=== PATIENT | male | born 1935 | race Caucasian/White ===

== ENCOUNTER → 2019-08-11 10:09 | Outpatient (BNVA) | payer MEDICARE, BC, SELFPAY | PROVIDERS: Family Provider Family Medicine; PCP Family Medicine; Visit Provider Family Medicine | DX: B35.3 Tinea pedis (principal); E78.5 Hyperlipidemia, unspecified; N40.0 Benign prostatic hyperplasia without lower urinary tract symptoms; I10 Essential (primary) hypertension; R97.20 Elevated prostate specific antigen [PSA] | CPT/HCPCS: 80053; 80061; 85025; G0103 ==

== ENCOUNTER → 2019-12-03 10:07 | Outpatient (BNVA) | payer MEDICARE, BC, SELFPAY | PROVIDERS: Family Provider Family Medicine; PCP Family Medicine; Visit Provider Family Medicine | DX: R97.20 Elevated prostate specific antigen [PSA] (principal); E78.5 Hyperlipidemia, unspecified | CPT/HCPCS: 80053; 80061; 84153; 85025 ==

== ENCOUNTER → 2020-04-08 08:13 | Outpatient (BNVA) | payer MEDICARE, BC, SELFPAY | PROVIDERS: Family Provider Family Medicine; PCP Family Medicine; Visit Provider Family Medicine | DX: I10 Essential (primary) hypertension (principal); E78.5 Hyperlipidemia, unspecified | CPT/HCPCS: 80053; 80061; 85025 ==

== ENCOUNTER → 2020-09-07 10:08 | Outpatient (BNVA) | payer MEDICARE, BC, SELFPAY | PROVIDERS: Family Provider Family Medicine; PCP Family Medicine; Visit Provider Family Medicine | DX: E78.5 Hyperlipidemia, unspecified (principal); M19.90 Unspecified osteoarthritis, unspecified site; N40.1 Benign prostatic hyperplasia with lower urinary tract symptoms; R39.11 Hesitancy of micturition; I50.9 Heart failure, unspecified; B35.3 Tinea pedis; I11.0 Hypertensive heart disease with heart failure | CPT/HCPCS: 80053; 80061; 84443; 85025; G0103 ==

== ENCOUNTER → 2021-02-01 12:01 | Outpatient (BNVA) | payer MEDICARE, BC, SELFPAY | PROVIDERS: Family Provider Family Medicine; PCP Family Medicine; Visit Provider Family Medicine | DX: E78.5 Hyperlipidemia, unspecified (principal); D64.9 Anemia, unspecified; I11.0 Hypertensive heart disease with heart failure; I50.9 Heart failure, unspecified; B35.3 Tinea pedis; N40.1 Benign prostatic hyperplasia with lower urinary tract symptoms; R39.11 Hesitancy of micturition; M17.10 Unilateral primary osteoarthritis, unspecified knee | CPT/HCPCS: 80053; 80061; 84443; 85025 ==

== ENCOUNTER → 2021-06-13 11:49 | Outpatient (BNVA) | payer MEDICARE, BC, SELFPAY | PROVIDERS: Family Provider Family Medicine; PCP Family Medicine; Visit Provider Nurse Practitioner Family | DX: J06.9 Acute upper respiratory infection, unspecified (principal); R05.9 Cough, unspecified; I10 Essential (primary) hypertension; I50.9 Heart failure, unspecified; R60.9 Edema, unspecified | CPT/HCPCS: 80053; 83880 ==

== ENCOUNTER → 2021-06-14 11:03 | Outpatient (BNVA) | payer MEDICARE, BC, SELFPAY | PROVIDERS: Family Provider Family Medicine; PCP Family Medicine; Visit Provider Nurse Practitioner Family | DX: J06.9 Acute upper respiratory infection, unspecified (principal); R05.9 Cough, unspecified | CPT/HCPCS: 71046 ==

== ENCOUNTER 2021-06-26 12:55 | Emergency (ER) | payer MEDICARE, BC, SELFPAY ==
[2021-06-26 13:03] VITALS: BP 196/82; PULSE 66; RESP 18; TEMP 37.2; O2SAT 95
--- NOTE | 2021-06-26 13:13 | W.ED.AMS ---
HPI - Altered Mental Status General: Chief Complaint: Altered Mental Status Stated Complaint: AMS Time Seen by Provider: 06/26/21 13:13 Limitations: altered mental status and other History of Present Illness: Mr. Ceja is an 85-year-old gentleman with history, per chart review, of hypertension, hyperlipidemia, CHF, absence of eye who presents to the emergency department for strokelike symptoms. History is severely limited by patient's clinical presentation and history is provided by family at bedside. Apparently he walked down to a barn yesterday afternoon perhaps around 330 and when he returned he had dysarthric speech. He did not indicate fall or any obvious cause. Symptoms have persisted. He tried to converse via writing this morning however was only able to write numbers and the word sick. Upon my examination the patient has severe receptive aphasia which limits history. No other recent changes in health reported by family. 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 Encounter for counseling for care management of patient with chronic conditions and complex health needs using nurse-based model Essential hypertension Gastric ulcer multiple Hiatal hernia Lower esophageal ring (Schatzki) Surgical History History of arthroscopy of shoulder (~2005) History of esophagogastroduodenoscopy (EGD) (~12/2015) Schatzki ring noted, bx taken with cold forceps. Small hiatal hernia, multiple 5mm gastric ulcers noted in the antrum of stomach. BX with cold forceps. No abnormalities in the duodenum. History of removal of eye (~1965) right Hx laparoscopic cholecystectomy (~05/2017) Hx of appendectomy (~1967) Hx of colonoscopy (~12/2015) no abnormalities, except internal hemorrhoids. No obvious source of bleeding. Hx of transurethral resection of prostate Family History Father Cancer hepatic Social History Smoking and tobacco status: never smoked Second hand smoke exposure: No Alcohol intake: never Caregiver/support person: Yes Lives independently: Yes Household members: spouse Housing: House Marital status: Current occupational status: retired History of recent travel: No Current gender identity: Male Wandy/Yarsanism: D4P Physical Exam Const: COMMON NORMALS: alert GENERAL APPEARANCE: well developed and ill appearing HENMT: COMMON NORMALS: normocephalic and atraumatic HEAD & SCALP: normocephalic and atraumatic Eye: COMMON NORMALS: conjunctivae normal CONJUNCTIVA: Yes conjunctivae normal SCLERA: sclerae normal OTHER: right eye prosthesis Neck/C-Spine: COMMON NORMALS: supple GENERAL: Yes trachea midline Resp: COMMON NORMALS: clear to auscultation bilaterally EFFORT & INSPECTION: Yes able to speak in complete sentences AUSCULTATION: clear to auscultation bilaterally OTHER: Patient at times blowing breath out through pursed lips for uncertain reason, other times appears normal Cardio: COMMON NORMALS: regular rate and regular rhythm RATE: regular rate RHYTHM: regular rhythm GI: COMMON NORMALS: Soft to palpation PALPATION: Yes Soft to palpation and No Tenderness to palpation present (GI) PERCUSSION: normal to percussion Extremity: GENERAL: Yes normal exam except as noted and No edema Neuro: COMMON NORMALS: moves all extremities SENSORIUM/ORIENTATION: Yes alert OTHER: Dense receptive aphasia which severely limits exam. Patient appears to look around in regard appropriately however does not understand or follow commands. Speech severely dysarthric. NIHSS at least 10 if no points added for non testable items. Course ED course: - Patient was seen and evaluated by me at bedside - Patient placed on cardiac monitors, IV access obtained - Initial evaluation notable for NIHSS 10 at best. No evidence of trauma.. Patient outside of TPA window. - Labs and xrays personally interpreted by me. EKG performed at 1327 and personally interpreted by me. Sinus rhythm. No STEMI. - Labs notable for normal glucose. No acute hematologic or metabolic abnormality to explain the patient's symptoms. - Imaging notable for no lobar consolidation or pneumothorax. I ordered CT head shortly after seeing patient approximately 15-20 minutes after patient was registered/presented to ED. Apparently nursing staffing coordinator witnessed bedbugs on patient and there was a delay in obtaining this imaging as radiology staff would not take patient to CT right away. I emphasized to charge nurse that imaging takes priority however a delay still occurred. CT imaging notable for bleed. In discussion with radiology perhaps a bleeding metastatic lesion, though no known cancer history, as location is not typical for hypertensive bleed or traumatic bleed. - Given hypertension nicardipine ordered. With systolic goal less than 140. I directed nursing staffing coordinator for head of bed elevated to approximately 40 degrees. Case discussed with neurosurgery at [facility] in [facility] Dr. Pool who will evaluate the patient as ED to ED transfer. Patient accepted by Dr. Schafer in the emergency department. - Upon serial reexamination after treatment the patient was similar - Based on patient history, evaluation, and testing as interpreted the most likely cause of the patient's condition is hemorrhagic stroke - The results of ED evaluation were discussed with the patient's family including plan for transfer due to requirement for level of care not available if discharged to prevent significant worsening/deterioration. - Patient transferred from the emergency department by air EMS crew without worsening or acute clinical change. Note: Click bubbles or prepopulated bernabe in note writing are used for assistance with data collection and billing and are inherently more limited than narrative and other text portions of this note. Please use narrative for additional clinical history and defer to narrative/free test for any case of contradictory information. If information appears in only free text or click bubble it should be considered present or absent as reported. Please contact note proposal manager writer for clarifications of clinical information or contradictory information. MDM is a brief summary, contradictory or erroneous seeming information should be clarified and full note should be reviewed. Vital Signs: Vital signs: Vital Signs Temperature 98.9 F 06/26/21 13:03 Pulse Rate 65 06/26/21 15:54 Respiratory Rate 18 06/26/21 15:54 Blood Pressure 146/81 06/26/21 15:54 Pulse Oximetry 96 06/26/21 15:54 MDM - Altered Mental Status Medical Decision Making 85-year-old gentleman not on anticoagulation presenting with unwitnessed onset of abnormal neurologic symptoms. Last known normal 06/25 at approximately 3:30 PM. Subsequently seen by family with inability to speak/dysarthric speech. No history of similar. Patient found to have large intraparenchymal hemorrhage in the left parietal region and NIHSS of at least 10 with dense receptive aphasia severely limiting neurologic exam. Transferred emergently for neurosurgical evaluation. Medical Records I reviewed the patient's medical records. Lab Data I reviewed the patient's lab results. : 06/26/21 13:34 06/26/21 13:34 Radiology Impressions Chest X-Ray 06/26/21 13:14 IMPRESSION: Mild bibasilar atelectasis. Pneumonitis is not excluded. Head CT 06/26/21 13:14 IMPRESSION: Acute parenchymal hematoma centered in the left posterior temporal lobe, measuring 2.9 x 4.3 x 2.0 cm, with surrounding halo of edema. Subarachnoid hemorrhage noted in several adjacent sulci. ADDENDUM: 06/26/21 1549 The ordering physician Kumar Storm was contacted by phone at 3:42 PM CDT, 06/26/2021 with these results. Laboratory Results WBC 8.5 10^3/uL (4.0-10.0) 06/26/21 13:34 RBC 4.28 10^6/uL (4.1-5.3) 06/26/21 13:34 Hgb 13.5 g/dL (11.7-16.6) 06/26/21 13:34 Hct 39.6 % (42.0-52.0) L 06/26/21 13:34 MCV 92.5 fl (80-94) 06/26/21 13:34 MCH 31.5 pg (28.0-34.0) 06/26/21 13:34 MCHC 34.1 g/dL (30.0-36.0) 06/26/21 13:34 RDW 12.4 % (12.1-15.1) 06/26/21 13:34 Plt Count 199 10^3/cmm (130-400) 06/26/21 13:34 MPV 10.7 fL (7.4-10.4) H 06/26/21 13:34 Neut % (Auto) 70.9 % 06/26/21 13:34 Lymph % (Auto) 20.7 % 06/26/21 13:34 [place] % (Auto) 6.0 % 06/26/21 13:34 Eos % (Auto) 1.3 % 06/26/21 13:34 Baso % (Auto) 0.7 % 06/26/21 13:34 Neut # (Auto) 6.02 10^3/uL (1.8-7.7) 06/26/21 13:34 Lymph # (Auto) 1.8 10^3/uL (0.8-4.8) 06/26/21 13:34 [place] # (Auto) 0.5 10^3/uL (0.2-0.9) 06/26/21 13:34 Eos # (Auto) 0.1 10^3/uL (0.0-0.8) 06/26/21 13:34 Baso # (Auto) 0.1 10^3/uL (0.0-0.1) 06/26/21 13:34 Nucleated RBC % (auto) 0 % 06/26/21 13:34 Nucleated RBCs # 0.0 /100WBC 06/26/21 13:34 PT 12.70 SECONDS (12.1-14.9) 06/26/21 13:34 INR 0.93 (0.8-1.2) 06/26/21 13:34 APTT 25.6 SECONDS (23.9-36.7) 06/26/21 13:34 Sodium 133 mmol/L (136-145) L 06/26/21 13:34 Potassium 4.5 mmol/L (3.5-5.1) 06/26/21 13:34 Chloride 101 mmol/L (98-107) 06/26/21 13:34 Carbon Dioxide 22 mmol/L (22-29) 06/26/21 13:34 Anion Gap 14.5 (5-19) 06/26/21 13:34 BUN 17 mg/dL (8-23) 06/26/21 13:34 Creatinine 1.1 mg/dL (0.7-1.2) 06/26/21 13:34 GFR Calculation Not Reportable 06/26/21 13:34 Glucose 124 mg/dL (65-115) H 06/26/21 13:34 POC Glucose 112 mg/dL (70-110) H 06/26/21 13:31 Calculated Osmolality 279 mOsm/kg (285-295) L 06/26/21 13:34 Calcium 9.6 mg/dL (8.5-10.5) 06/26/21 13:34 Total Bilirubin 0.5 mg/dL (0.15-1.2) 06/26/21 13:34 AST 26 U/L (0-40) 06/26/21 13:34 ALT 17 U/L (0-41) 06/26/21 13:34 Alkaline Phosphatase 66 IU/L (40-130) 06/26/21 13:34 Troponin T Baseline 36 ng/L (0-15) H 06/26/21 13:34 Troponin T 120 Minute 32.14 ng/L (0-15) H 06/26/21 15:04 Delta Troponin T -3.86 ABS# (0-10) L 06/26/21 15:04 Total Protein 7.2 g/dL (6.6-8.7) 06/26/21 13:34 Albumin 3.6 g/dL (3.5-5.2) 06/26/21 13:34 Globulin 3.6 g/dL (1.3-4.6) 06/26/21 13:34 TSH 1.41 uIU/mL (0.27-4.20) 06/26/21 13:34 Critical Care Time Critical Care Time: Critical Care Time: Yes Total Critical Care Time: 80 Attestation: Due to a high probability of clinically significant, possibly life threatening deterioration, the patient required my highest level of attention and preparedness to intervene emergently and I personally spent this critical care time directly and personally managing the patient. This critical care time included obtaining a history; examining the patient; pulse oximetry; ordering and review of laboratory and imaging studies; arranging urgent treatment with development of a management plan; evaluation of patient's response to treatment; frequent reassessment; and, discussions with other providers as applicable. It was exclusive of separately billable procedures. Primary system involved cerebrovascular Discharge Plan Discharge Patient Disposition: Transfer to ED Clinical Impression: Hemorrhagic stroke Condition: Stable Prescriptions: No Action multivitamin [Daily Multi-Vitamin] Tablet 1 tab PO QAM 0RF aspirin 81 mg tablet,delayed release (DR/EC) 81 mg PO DAILY 0RF triamcinolone acetonide 0.1 % cream 1 applic TOPICAL BID Qty: 80 2RF ketoconazole 2 % cream 1 applic TOPICAL BID Qty: 60 2RF diclofenac sodium 1 % gel See Rx Instructions .ROUTE .COMPLEX Qty: 100 0RF Dose Instruction: APPLY 2 GRAMS (3/4 INCH) TOPICALLY 4 TIMES DAILY Rx Instructions: APPLY 2 GRAMS (3/4 INCH) TOPICALLY 4 TIMES DAILY celecoxib 200 mg capsule 200 mg PO BID 0RF bisoprolol-hydrochlorothiazide 10-6.25 mg tablet 1 tab PO DAILY 0RF simvastatin 10 mg tablet 10 mg PO DAILY 0RF tamsulosin 0.4 mg capsule 0.4 mg PO DAILY 0RF losartan 100 mg tablet 100 mg PO DAILY 0RF Referrals: Mike Martinez MD [Referring] - Sunshine Garcia MD [Primary Care Provider] - Coding Level of Care Code ED Insole Toe Snipping Machine Operator for Chg Fwd Exam Comprehensive
--- NOTE | 2021-06-26 13:14 | CTR_ITS ---
PROCEDURE INFORMATION: Exam: CT Head Without Contrast Exam date and time: 06/26/2021 3:19 PM Age: 85 years old Clinical indication: Altered mental status/memory loss and speech disturbance; Other: Not talking; Additional info: Stroke like symptoms TECHNIQUE: Imaging protocol: Computed tomography of the head without contrast. Radiation optimization: All CT scans at this facility use at least one of these dose optimization techniques: automated exposure control; mA and/or kV adjustment per patient size (includes targeted exams where dose is matched to clinical indication); or iterative reconstruction. COMPARISON: No relevant prior studies available. RADIATION DOSE METRICS: Total DLP (mGy-cm): 928.68 FINDINGS: Brain: There is an acute parenchymal hematoma centered in the left posterior temporal lobe, measuring 2.9 x 4.3 x 2.0 cm, with surrounding halo of edema. There is subarachnoid hemorrhage noted in several adjacent sulci. No midline shift. There are global involutional changes of the brain which are in keeping with the patient's age. No midline shift. Cerebral ventricles: No hydrocephalus. Paranasal sinuses: The visualized sinuses are unremarkable. Mastoid air cells: There is no mastoid effusion detected. Orbital cavities: Prosthetic right optic globe. Degenerative ocular calcifications are seen on the left. Vasculature: Atherosclerotic vascular disease is noted at the level of the skull base. Bones/joints: Unremarkable. No acute fracture. Soft tissues: Unremarkable. CT/CT head wo con* [id number] IMPRESSION: Acute parenchymal hematoma centered in the left posterior temporal lobe, measuring 2.9 x 4.3 x 2.0 cm, with surrounding halo of edema. Subarachnoid hemorrhage noted in several adjacent sulci.
--- NOTE | 2021-06-26 13:14 | ECG_ITS ---
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 Measurements Intervals [place] Rate: 65 P: 58 DE: 188 QRS: 44 QRSD: 79 T: 79 QT: 388 QTc: 404 Interpretive Statements SINUS RHYTHM MODERATE ST DEPRESSION [0.05+ mV ST DEPRESSION] Compared to ECG 06/05/2017 10:08:08 No significant changes Electronically Signed On 06-27-2021 15:28:07 CDT by Ahmet Hamilton M.D. [email or web address] ([id number]
--- NOTE | 2021-06-26 13:14 | XRR_ITS ---
PROCEDURE INFORMATION: Exam: XR Chest Exam date and time: 06/26/2021 3:21 PM Age: 85 years old Clinical indication: Other: AMS; Additional info: Stroke like symptoms TECHNIQUE: Imaging protocol: XR of the chest. Views: 1 view. COMPARISON: CR XR chest 2V* [id number] 06/14/2021 11:18 AM FINDINGS: Lungs: There is mild bibasilar atelectasis. Pneumonitis is not excluded. Pleural spaces: No definite pleural effusion is seen. No pneumothorax identified. Heart/Mediastinum: Unremarkable. No cardiomegaly. Bones/joints: Unremarkable. XR/XR chest 1V portable [id number] IMPRESSION: Mild bibasilar atelectasis. Pneumonitis is not excluded.
[2021-06-26 13:33] VITALS: BP 172/95; PULSE 66; RESP 16; O2SAT 97
[2021-06-26 13:40] LABS: Glucose Point of Care 112 mg/dL (70-110)
[2021-06-26 13:46] LABS: Basophils # 0.1 10^3/uL (0.0-0.1); Basophils % 0.7 %; Eosinophils # 0.1 10^3/uL (0.0-0.8); Eosinophils % 1.3 %; Hematocrit 39.6 % (42.0-52.0); Hemoglobin 13.5 g/dL (11.7-16.6); Lymphocytes # 1.8 10^3/uL (0.8-4.8); Lymphocytes % 20.7 %; Mean Corpuscular HGB Conc 34.1 g/dL (30.0-36.0); Mean Corpuscular Hemoglobin 31.5 pg (28.0-34.0); Mean Corpuscular Volume 92.5 fl (80-94); Mean Platelet Volume 10.7 fL (7.4-10.4); Monocytes # 0.5 10^3/uL (0.2-0.9); Neutrophils # 6.02 10^3/uL (1.8-7.7); Neutrophils % 70.9 %; Nucleated Red Blood Cells % 0 %; Platelet Count 199 10^3/cmm (130-400); Red Blood Count 4.28 10^6/uL (4.1-5.3); Red Cell Distribution Width 12.4 % (12.1-15.1); White Blood Count 8.5 10^3/uL (4.0-10.0)
--- NOTE | 2021-06-26 14:10 | PC.NURSE ---
Two live bed bugs were found on patient during initial assessment. Daughter at bedside stating her parent have been dealing with bed bugs, have had a home treatment but it has been unsuccessful. Daughter concerned if his s/s are caused from the bugs. The two bugs were captured into a sterile cup. Charge Nurse notified. Dr. Mojica notified. Pt's belongings were placed in a trash bag and double bagged, pt changed into paper scrubs, non slip socks, and a surgical cap. Pt's bedding was also changed and placed in the appropriate bagging. Family informed of policy and educated on staying in the room during this ER visit. Towels placed outside the door of room 2 along the door frame.
[2021-06-26 14:15] LABS: Troponin(5th) Baseline 36 ng/L (0-15)
[2021-06-26 14:20] VITALS: BP 176/71; PULSE 88; RESP 16; O2SAT 95
[2021-06-26 14:24] LABS: Alanine Aminotransferase 17 U/L (0-41); Albumin Level 3.6 g/dL (3.5-5.2); Alkaline Phosphatase 66 IU/L (40-130); Anion Gap 14.5 (5-19); Aspartate Amino Transferase 26 U/L (0-40); Blood Urea Nitrogen 17 mg/dL (8-23); Calcium 9.6 mg/dL (8.5-10.5); Carbon Dioxide 22 mmol/L (22-29); Chloride 101 mmol/L (98-107); Globulin 3.6 g/dL (1.3-4.6); Glucose 124 mg/dL (65-115); Osmolality Calculated 279 mOsm/kg (285-295); Potassium 4.5 mmol/L (3.5-5.1); Sodium 133 mmol/L (136-145); Thyroid Stimulating Hormone 1.41 uIU/mL (0.27-4.20); Total Bilirubin 0.5 mg/dL (0.15-1.2); Total Protein 7.2 g/dL (6.6-8.7)
[2021-06-26 15:37] LABS: Troponin 5 2HR 32.14 ng/L (0-15)
[2021-06-26 15:38] VITALS: BP 185/83; PULSE 61; RESP 16; O2SAT 97
[2021-06-26] MEDS: nicardipine 20 MG/200 ML PREMIX 50 MG IV (15:38)
[2021-06-26 15:54] VITALS: BP 146/81; PULSE 65; RESP 18; O2SAT 96
[2021-06-26 15:59] LABS: INR 0.93 (0.8-1.2); Partial Thromboplastin Time 25.6 SECONDS (23.9-36.7)
[2021-06-26 16:04] LABS: Troponin 5 2HR Delta -3.86 ABS# (0-10)
== END 2021-06-26 16:30 ==
PROVIDERS: Emergency Provider Emergency Medicine; PCP Family Medicine
DX: I61.9 Nontraumatic intracerebral hemorrhage, unspecified (principal); R47.01 Aphasia; R29.710 NIHSS score 10; I11.0 Hypertensive heart disease with heart failure; I50.9 Heart failure, unspecified; E78.5 Hyperlipidemia, unspecified; Z90.01 Acquired absence of eye; Z79.82 Long term (current) use of aspirin
CPT/HCPCS: 36416; 70450; 71045; 80053; 82962; 84443; 84484; 85025; 85610; 85730; 93005; 96374; 99285

== ENCOUNTER 2021-11-12 11:44 | Emergency (ER) | payer MEDICARE, BC, SELFPAY ==
[2021-11-12 11:49] VITALS: BP 131/61; PULSE 70; RESP 16; TEMP 36.3; O2SAT 95; BMI 26.5
--- NOTE | 2021-11-12 11:50 | ED_ITS ---
HPI - Altered Mental Status General: Chief Complaint: Altered Mental Status Stated Complaint: AMS Time Seen by Provider: 11/12/21 11:50 Limitations: altered mental status History of Present Illness: 86-year-old gentleman with history, per chart review of CHF, hypertension, hyperlipidemia, COVID presenting to the ER for mental status change. 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 Apparently correction staff called 911 because he destroyed his room however upon EMS arrival room appears in well order without evidence of significant abnormality. History is significant limited by patient's baseline mental status. Apparently COVID's been going on for 3 days. Otherwise no significant meaningful history obtained from patient. Review of Systems General: Reports: ROS unobtainable due to mental status PFSH ED PFSH: Medical History Absent eyeball right Anemia Benign prostatic hyperplasia CHF (congestive heart failure) 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 Encounter for counseling for care management of patient with chronic conditions and complex health needs using nurse-based model Essential hypertension Gastric ulcer multiple Hiatal hernia Lower esophageal ring (Schatzki) Surgical History History of arthroscopy of shoulder (~2005) History of esophagogastroduodenoscopy (EGD) (~12/2015) Schatzki ring noted, bx taken with cold forceps. Small hiatal hernia, multiple 5mm gastric ulcers noted in the antrum of stomach. BX with cold forceps. No abnormalities in the duodenum. History of removal of eye (~1965) right Hx laparoscopic cholecystectomy (~05/2017) Hx of appendectomy (~1967) Hx of colonoscopy (~12/2015) no abnormalities, except internal hemorrhoids. No obvious source of bleeding. Hx of transurethral resection of prostate Family History Father Cancer hepatic Social History Smoking and tobacco status: never smoked Second hand smoke exposure: No Alcohol intake: never Caregiver/support person: Yes Lives independently: Yes Household members: spouse Housing: House Marital status: Current occupational status: retired History of recent travel: No Current gender identity: Male Wandy/[employer]ond[employer]ational: [employer] Physical Exam Const: COMMON NORMALS: alert GENERAL APPEARANCE: cooperative and well developed HENMT: COMMON NORMALS: normocephalic and atraumatic HEAD & SCALP: normocep halic and atraumatic Eye: COMMON NORMALS: conjunctivae normal CONJUNCTIVA: Yes conjunctivae normal SCLERA: sclerae normal Neck/C-Spine: COMMON NORMALS: supple GENERAL: Yes trachea midline Resp: COMMON NORMALS: normal respiratory effort and clear to auscultation bilaterally EFFORT & INSPECTION: Yes able to speak in complete sentences AUSCULTATION: clear to auscultation bilaterally Cardio: COMMON NORMALS: regular rate and regular rhythm RATE: regular rate RHYTHM: regular rhythm GI: COMMON NORMALS: Soft to palpation PALPATION: Yes Soft to palpation and No Tenderness to palpation present (GI) Extremity: GENERAL: Yes normal exam except as noted and No edema Neuro: COMMON NORMALS: moves all extremities SENSORIUM/ORIENTATION: Yes alert and Yes Orientation impaired OTHER: Somewhat difficult to understand speech Course ED course: - Patient was seen and evaluated by me at bedside - Patient placed on cardiac monitors, IV access obtained - Initial evaluation notable for exam as above. Nonfocal neuro exam. - Labs and xrays personally interpreted by me. EKG notable for sinus rhythm, nonspecific ST segment abnormalities. No STEMI. - Labs notable for mild leukopenia, normal hemoglobin. Metabolic panel without acute abnormality to explain symptoms. No evidence of UTI. - Imaging notable for no lobar consolidation or pneumothorax per radiology read atypical appearance of right hilum concerning for thoracic aortic pathology. CT head negative for acute intracranial hemorrhage or mass. CTA chest negative for acute allergy. - Upon serial reexamination after treatment the patient was similar - Based on patient history, evaluation, and testing as interpreted the most likely cause of the patient's condition is altered mental status which is likely baseline for patient. -Discharge instructions printed. Satisfactory for transfer back to correction. Note: Click bubbles or prepopulated bernabe in note writing are used for assistance with data collection and billing and are inherently more limited than narrative and other text portions of this note. Please use narrative for additional clinical history and defer to narrative/free test for any case of contradictory information. If information appears in only free text or click bubble it should be considered present or absent as reported. Please contact note junior copywriter for clarifications of clinical information or contradictory information. MDM is a brief summary, contradictory or erroneous seeming information should be clarified and full note should be reviewed. Vital Signs: Vital signs: Vital Signs Temperature 97.3 F L 11/12/21 11:49 Pulse Rate 99 11/12/21 18:19 Respiratory Rate 21 H 11/12/21 18:19 Blood Pressure 98/68 11/12/21 18:19 Pulse Oximetry 94 11/12/21 18:19 Oxygen Delivery Me thod 11/12/21 13:24 MDM - Altered Mental Status Medical Decision Making 86-year-old gentleman with history of dementia presenting for possible destructive behavior though this is questionable, patient cooperative, limited history secondary to likely baseline. ED evaluation negative for acute pathology. Satisfactory for continued outpatient management at correction. Medical Records I reviewed the patient's medical records. Lab Data I reviewed the patient's lab results. : 11/12/21 12:01 11/12/21 12:01 Radiology Impressions Chest X-Ray 11/12/21 12:14 IMPRESSION: Smooth bulging of the right hilum that could reflect an ascending thoracic aortic aneurysm. Consider CTA of the chest if clinically warranted. Head CT 11/12/21 12:14 IMPRESSION: 1. Kwmx-sg-fkxdxefj senescent changes as above. 2. 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 3. No acute intracranial abnormality is identified. Chest CTA 11/12/21 13:18 IMPRESSION: No acute findings. Laboratory Results WBC 2.9 10^3/uL (4.0-10.0) L 11/12/21 12:01 RBC 4.22 10^6/uL (4.1-5.3) 11/12/21 12:01 Hgb 11.8 g/dL (11.7-16.6) 11/12/21 12:01 Hct 38.4 % (42.0-52.0) L 11/12/21 12:01 MCV 91.0 fl (80-94) 11/12/21 12:01 MCH 28.0 pg (28.0-34.0) 11/12/21 12:01 MCHC 30.7 g/dL (30.0-36.0) 11/12/21 12:01 RDW 15.7 % (12.1-15.1) H 11/12/21 12:01 Plt Count 145 10^3/cmm (130-400) 11/12/21 12:01 MPV 10.9 fL (7.4-10.4) H 11/12/21 12:01 Neut % (Auto) 42.1 % 11/12/21 12:01 Lymph % (Auto) 45.8 % 11/12/21 12:01 [place] % (Auto) 9.7 % 11/12/21 12:01 Eos % (Auto) 1.7 % 11/12/21 12:01 Baso % (Auto) 0.0 % 11/12/21 12:01 Neut # (Auto) 1.21 10^3/uL (1.8-7.7) L 11/12/21 12:01 Lymph # (Auto) 1.3 10^3/uL (0.8-4.8) 11/12/21 12:01 [place] # (Auto) 0.3 10^3/uL (0.2-0.9) 11/12/21 12:01 Eos # (Auto) 0.1 10^3/uL (0.0-0.8) 11/12/21 12:01 Baso # (Auto) 0.0 10^3/uL (0.0-0.1) 11/12/21 12:01 Nucleated RBC % (auto) 0 % 11/12/21 12:01 Nucleated RBCs # 0.0 /100WBC 11/12/21 12:01 Sodium 138 mmol/L (136-145) 11/12/21 12:01 Potassium 4.6 mmol/L (3.5-5.1) 11/12/21 12:01 Chloride 102 mmol/L (98-107) 11/12/21 12:01 Carbon Dioxide 25 mmol/L (22-29) 11/12/21 12:01 Anion Gap 15.6 (5-19) 11/12/21 12:01 BUN 19 mg/dL (8-23) 11/12/21 12:01 Creatinine 1.1 mg/dL (0.7-1.2) 11/12/21 12:01 GFR Calculation Not Reportable 11/12/21 12:01 Glucose 110 mg/dL (65-115) 11/12/21 12:01 Calculated Osmolality 289 mOsm/kg (285-295) 11/12/21 12:01 Calcium 8.3 mg/dL (8.5-10.5) L 11/12/21 12:01 Total Bilirubin 0.4 mg/dL (0.15-1.2) 11/12/21 12:01 AST 24 U/L (0-40) 11/12/21 12:01 ALT 14 U/L (0-41) 11/12/21 12:01 Alkaline Phosphatase 77 U/L (40-130) 11/12/21 12:01 Total Protein 6.7 g/dL (6.6-8.7) 11/12/21 12:01 Albumin 3.2 g/dL (3.5-5.2) L 11/12/21 12:01 Globulin 3.5 g/dL (1.3-4.6) 11/12/21 12:01 Procalcitonin 0.12 ng/mL (0-0.5) 11/12/21 12:01 TSH 3.15 uIU/mL (0.27-4.20) 11/12/21 12:01 Urine Color Yellow (Yellow) 11/12/21 14:40 Urine Appearance Sl hazy (CLEAR) 11/12/21 14:40 Urine pH 5 (5-7) 11/12/21 14:40 Ur Specific [place] 1.015 (1.005-1.030) 11/12/21 14:40 Urine Protein Neg (Negative) 11/12/21 14:40 Urine Glucose (UA) Norm (Normal) 11/12/21 14:40 Urine Ketones Negative (Negative) 11/12/21 14:40 Urine Blood Neg (Negative) 11/12/21 14:40 Urine Nitrate Negative (Negative) 11/12/21 14:40 Urine Bilirubin Neg (Negative) 11/12/21 14:40 Urine Urobilinogen 1 mg/dL (Negative) H 11/12/21 14:40 Ur Leukocyte Esterase Negative (Negative) 11/12/21 14:40 Urine RBC None /hpf (0-2) 11/12/21 14:40 Urine WBC Rare /hpf (0-5) 11/12/21 14:40 Ur Squamous Epith Cells Rare /hpf (0-5) 11/12/21 14:40 Amorphous Sediment Not Reportable 11/12/21 14:40 Urine Bacteria Trace /hpf (NONE) 11/12/21 14:40 Hyaline Casts 10-15 /lpf H 11/12/21 14:40 Urine Mucus 1+ /hpf 11/12/21 14:40 Discharge Plan Discharge Patient Disposition: er [facility] Clinical Impression: Dementia, COVID-19, Leukopenia Condition: Stable Discharge Orders: Discharge ED (Routine); Ordered 11/12/21 Ordered By: Kumar Mojica Referrals: Sunshine Garcia MD [Primary Care Provider] - Discharge Diet: Usual diet Discharge Activity: Increase activity as tolerated Patient Instructions: Dementia (ED), COVID-19 (Coronavirus Disease 2019) (ED) Activity Restrictions/Additional Instructions: Thank you for visiting the emergency department. You were seen and evaluated for behavioral changes/outburst. The exact cause of your symptoms is unclear though likely related to underlying dementia. Please continue current medication regimen and follow-up with primary care provider. Return to the emergency department for anything that you are concerned about a feel needs emergency department evaluation. Coding Level of Care Code ED Technical Support Intern for Jorgeg Fwd Exam Comprehensive
--- NOTE | 2021-11-12 11:56 | ECG_ITS ---
[facility] Test Date: 2021-11-12 Pat Name: Juan Ceja Department: Room: Gender: Male Miter Sawyer: : 1935 Requested By: Kumar Mojica Order Number: [id number] Tanner MD: Olive Wood M.D. Measurements Intervals [place] Rate: 70 P: 80 WI: 198 QRS: 36 QRSD: 87 T: 53 QT: 400 QTc: 432 Interpretive Statements SINUS RHYTHM NONSPECIFIC T-WAVE ABNORMALITY Compared to ECG 06/26/2021 13:27:39 T-wave abnormality now present ST (T wave) deviation no longer present Electronically Signed On 11-14-2021 8:12:21 CDT by Olive Wood M.D. [email or web address]/[id number] f
[2021-11-12 12:14] LABS: Eosinophils # 0.1 10^3/uL (0.0-0.8); Eosinophils % 1.7 %; Hematocrit 38.4 % (42.0-52.0); Hemoglobin 11.8 g/dL (11.7-16.6); Lymphocytes # 1.3 10^3/uL (0.8-4.8); Lymphocytes % 45.8 %; Mean Corpuscular HGB Conc 30.7 g/dL (30.0-36.0); Mean Platelet Volume 10.9 fL (7.4-10.4); Monocytes # 0.3 10^3/uL (0.2-0.9); Monocytes % 9.7 %; Neutrophils # 1.21 10^3/uL (1.8-7.7); Neutrophils % 42.1 %; Nucleated Red Blood Cells % 0 %; Platelet Count 145 10^3/cmm (130-400); Red Blood Count 4.22 10^6/uL (4.1-5.3); Red Cell Distribution Width 15.7 % (12.1-15.1); White Blood Count 2.9 10^3/uL (4.0-10.0)
--- NOTE | 2021-11-12 12:14 | CTR_ITS ---
PROCEDURE INFORMATION: Exam: CT Head Without Contrast Exam date and time: 11/12/2021 12:31 PM Age: 86 years old Clinical indication: Altered mental status/memory loss. TECHNIQUE: Imaging protocol: Computed tomography of the head without contrast. Radiation optimization: All CT scans at this facility use at least one of these dose optimization techniques: automated exposure control; mA and/or kV adjustment per patient size (includes targeted exams where dose is matched to clinical indication); or iterative reconstruction. COMPARISON: CT head wo con* [id number] 06/26/2021 3:19 PM RADIATION DOSE METRICS: Total DLP (mGy-cm): 1159.08 FINDINGS: Brain: No acute intracranial hemorrhage. 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 No mass, mass effect or midline shift. There is mild patchy subcortical and periventricular hypodensity, most commonly associated with small vessel ischemic disease of indeterminate age. The posterior fossa is grossly unremarkable; however, it is partially obscurred by beam hardening artifact. Cerebral ventricles: The ventricles are prominent, compatible with moderate parenchymal volume loss. Paranasal sinuses: Small retention cysts or polyps in the right maxillary sinus. Mastoid air cells: No mastoid effusion. Orbital cavities: A globe prosthesis is noted on the right. Bones/joints: No acute fracture is seen. Soft tissues: No significant scalp soft tissue swelling. Vasculature: There is no evidence of acute large vessel infarct. CT/CT head wo con* [id number] IMPRESSION: 1. Uewd-zh-lurvekrx senescent changes as above. 2. 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 3. No acute intracranial abnormality is identified.
--- NOTE | 2021-11-12 12:14 | XRR_ITS ---
PROCEDURE INFORMATION: Exam: XR Chest Exam date and time: 11/12/2021 12:36 PM Age: 86 years old Clinical indication: Altered mental status TECHNIQUE: Imaging protocol: Radiologic exam of the chest. Views: 1 view. COMPARISON: CR XR chest 1V portable [id number] 06/26/2021 3:21 PM FINDINGS: Lungs: There is smooth bulging of the right hilum that could reflect an ascending thoracic aortic aneurysm. Subsegmental atelectasis or scarring in the lower left chest. No ariela consolidation to suggest pneumonia. Pleural spaces: Pleural thickening and scarring in the lung apices. No pleural effusion. No pneumothorax. Heart/Mediastinum: The cardiac silhouette is approximately unchanged. No gross evidence of pneumomediastinum. Bones/joints: No gross fracture. XR/XR chest 1V portable [id number] IMPRESSION: Smooth bulging of the right hilum that could reflect an ascending thoracic aortic aneurysm. Consider CTA of the chest if clinically warranted.
[2021-11-12 12:33] LABS: Procalcitonin 0.12 ng/mL (0-0.5); Thyroid Stimulating Hormone 3.15 uIU/mL (0.27-4.20)
[2021-11-12 12:44] LABS: Alanine Aminotransferase 14 U/L (0-41); Albumin Level 3.2 g/dL (3.5-5.2); Alkaline Phosphatase 77 U/L (40-130); Blood Urea Nitrogen 19 mg/dL (8-23); Calcium 8.3 mg/dL (8.5-10.5); Carbon Dioxide 25 mmol/L (22-29); Chloride 102 mmol/L (98-107); Globulin 3.5 g/dL (1.3-4.6); Glucose 110 mg/dL (65-115); Osmolality Calculated 289 mOsm/kg (285-295); Sodium 138 mmol/L (136-145); Total Bilirubin 0.4 mg/dL (0.15-1.2); Total Protein 6.7 g/dL (6.6-8.7)
[2021-11-12 12:45] LABS: Anion Gap 15.6 (5-19); Aspartate Amino Transferase 24 U/L (0-40); Potassium 4.6 mmol/L (3.5-5.1)
[2021-11-12 12:47] VITALS: BP 134/72; PULSE 69; RESP 16; O2SAT 95
--- NOTE | 2021-11-12 13:18 | CTR_ITS ---
PROCEDURE INFORMATION: Exam: CTA Chest With Contrast Exam date and time: 11/12/2021 3:06 PM Age: 86 years old Clinical indication: Abnormal findings; Abnormal radiologic exam of lung or chest; Additional info: Abnormal cxr, eval aorta TECHNIQUE: Imaging protocol: Computed tomographic angiography of the chest with contrast. 3D rendering (Not supervised by radiologist): MIP and/or 3D reconstructed images were created by the technologist. Radiation optimization: All CT scans at this facility use at least one of these dose optimization techniques: automated exposure control; mA and/or kV adjustment per patient size (includes targeted exams where dose is matched to clinical indication); or iterative reconstruction. Contrast material: OMNI 350; Contrast volume: 95 ml; Contrast route: INTRAVENOUS (IV); COMPARISON: CT chest wo con [id number] 05/07/2017 8:46 AM RADIATION DOSE METRICS: Total DLP (mGy-cm): 923.29 FINDINGS: Pulmonary arteries: Normal. No pulmonary emboli. Aorta: No aortic aneurysm. No aortic dissection. Lungs: Scattered curvilinear scarring predominantly centered at the lung bases. No consolidation. No masses. Pleural spaces: No pneumothorax. No pleural effusion. Heart: Coronary artery calcifications present. No cardiomegaly. No pericardial effusion. Lymph nodes: Partially calcified mediastinal lymph nodes suggestive of prior granulomatous disease. No enlarged lymph nodes. Bones/joints: No acute fracture. Soft tissues: Unremarkable. CT/CT angio chest [id number] IMPRESSION: No acute findings.
[2021-11-12 13:24] VITALS: BP 114/66; PULSE 65; RESP 21; O2SAT 96
--- NOTE | 2021-11-12 14:43 | PC.NURSE ---
Patient voided on own, urine sample sent to lab.
[2021-11-12 14:57] LABS: Add Urine Microscopic? YES; Bilirubin Urine Neg (Negative); Blood Urine Neg (Negative); Glucose Urine UA Norm (Normal); Ketones Urine Negative (Negative); Leukocyte Esterase Urine Negative (Negative); Nitrate Urine Negative (Negative); Protein Urine Neg (Negative); Specific Gravity, Urine 1.015 (1.005-1.030); Urine Appearance SL Hazy (CLEAR); Urine Color Yellow (Yellow); Urobilinogen Urine 1 mg/dL (Negative); pH Urine 5 (5-7)
[2021-11-12] MEDS: iohexol 350 mg/mL 100 mL Btl IV (15:12)
[2021-11-12 15:15] LABS: Squamous Epithelial Cell Urine RARE /hpf (0-5); WBC Urine RARE /hpf (0-5)
[2021-11-12 15:16] LABS: Add Urine Culture? No; Bacteria Urine TRACE /hpf; Mucus Urine 1+ /hpf
[2021-11-12 18:19] VITALS: BP 98/68; PULSE 99; RESP 21; O2SAT 94
== END 2021-11-12 18:20 ==
PROVIDERS: Emergency Provider Emergency Medicine; PCP Family Medicine
DX: F03.90 Unspecified dementia, unspecified severity, without behavioral disturbance, psychotic disturbance, mood disturbance, and anxiety (principal); U07.1 COVID-19; D72.819 Decreased white blood cell count, unspecified; I11.0 Hypertensive heart disease with heart failure; I50.9 Heart failure, unspecified; E78.5 Hyperlipidemia, unspecified
CPT/HCPCS: 70450; 71045; 71275; 80053; 81001; 84145; 84443; 85025; 93005; 99285; Q9967

== ENCOUNTER 2022-03-01 05:48 | Outpatient (CLI) | payer MEDICARE, BC, SELFPAY ==
[2022-03-01 06:20] LABS: Influenza A by IFA negative (Negative); Influenza B by IFA negative (Negative)
== END 2022-03-01 05:49 | disposition home or self-care (01) ==
LOC: LAB 05:53
PROVIDERS: PCP Family Medicine; Visit Provider Internal Medicine
DX: Z01.89 Encounter for other specified special examinations (principal)
CPT/HCPCS: 87804

== ENCOUNTER 2022-11-15 20:46 | Emergency (ER) | payer MEDICARE, BC, MEDICAID, SELFPAY ==
[2022-11-15 20:48] VITALS: BP 151/70; PULSE 85; RESP 16; TEMP 36.4; O2SAT 89; BMI 31.5
--- NOTE | 2022-11-15 20:50 | ECG_ITS ---
[facility] Test Date: 2022-11-15 Pat Name: Juan Ceja Department: Room: Gender: Male Risk Tech: : 1935 Requested By: Marcos Willams Order Number: [id number] Tanner MD: Bal Bailey M.D. Measurements Intervals [place] Rate: 84 P: 69 MA: 197 QRS: 35 QRSD: 85 T: 69 QT: 371 QTc: 440 Interpretive Statements SINUS RHYTHM Compared to ECG 11/12/2021 11:56:13 T-wave abnormality no longer present Electronically Signed On 11-16-2022 7:51:01 CDT by Bal Bailey M.D. [id number]
--- NOTE | 2022-11-15 20:50 | CTR_ITS ---
PROCEDURE INFORMATION: Exam: CT Head Without Contrast Exam date and time: 11/15/2022 9:00 PM Age: 87 years old Clinical indication: Altered mental status/memory loss; Additional info: AMS TECHNIQUE: Imaging protocol: Computed tomography of the head without contrast. Radiation optimization: All CT scans at this facility use at least one of these dose optimization techniques: automated exposure control; mA and/or kV adjustment per patient size (includes targeted exams where dose is matched to clinical indication); or iterative reconstruction. REPORTING DATA: Count of CT and Cardiac NM exams in prior 12 months: This patient has received 0 known CTs and 0 known cardiac nuclear medicine studies in the 12 months prior to the current study. COMPARISON: CT head wo con* [id number] 11/12/2021 12:31 PM RADIATION DOSE METRICS: Total DLP (mGy-cm): 1107.35 FINDINGS: Brain: Diffuse cortical volume loss. Encephalomalacia in the left temporoparietal region. Mild hypodensities in supratentorial periventricular and subcortical white matter and miesha, consistent with microangiopathy. No intracranial hemorrhage. Cerebral ventricles: No ventriculomegaly. Paranasal sinuses: Visualized sinuses are unremarkable. No fluid levels. Mastoid air cells: Visualized mastoid air cells are well aerated. Orbital cavities: Right globe prosthesis. Scleral calcification on the left. Bones/joints: Unremarkable. No acute fracture. Soft tissues: Unremarkable. Vasculature: No hyperdense artery. CT/CT head wo con* [id number] IMPRESSION: No acute intracranial abnormality.
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
[2022-11-15 21:18] LABS: SARS Covid-2 Antigen negative (Negative)
[2022-11-15 22:05] LABS: Add Urine Microscopic? NO; Charge for UA Resulting for Rev
--- NOTE | 2022-11-15 22:05 | PC.NURSE ---
PT IS STILL SLEEPING IN BED, VISIBLE RISE AND FALL OF CHEST, PULSES PALPABLE, PSA OUTSIDE, IN GREEN SCRUBS
[2022-11-15 22:06] LABS: Basophils # 0.1 10^3/uL (0.0-0.1); Basophils % 0.9 %; Eosinophils # 0.3 10^3/uL (0.0-0.8); Eosinophils % 4.9 %; Hematocrit 37.1 % (37-53); Lymphocytes # 1.3 10^3/uL (0.8-4.8); Lymphocytes % 23.1 %; Mean Corpuscular HGB Conc 33.2 g/dL (30-55); Mean Corpuscular Hemoglobin 31.8 pg (27-33); Mean Corpuscular Volume 95.9 fl (82-101); Mean Platelet Volume 10.4 fL (7.4-10.4); Monocytes # 0.4 10^3/uL (0.2-0.9); Neutrophils # 3.48 10^3/uL (1.8-7.7); Neutrophils % 63.7 %; Nucleated Red Blood Cells % 0 %; Platelet Count 158 10^3/cmm (157-399); Red Blood Count 3.87 10^6/uL (3.85-5.65); Red Cell Distribution Width 13.2 % (12.1-15.1); White Blood Count 5.46 10^3/uL (3.29-11.43)
[2022-11-15 22:07] LABS: Glucose Urine UA Norm (Normal); Protein Urine Neg (Negative); Urine Appearance Clear (CLEAR); Urine Color Yellow (Yellow); pH Urine 6 (5-7)
[2022-11-15 22:08] LABS: Bilirubin Urine Neg (Negative); Blood Urine Neg (Negative); Ketones Urine Negative (Negative); Leukocyte Esterase Urine Negative (Negative); Nitrate Urine Negative (Negative); Urobilinogen Urine Norm (Negative)
[2022-11-15 22:17] LABS: Amphetamines Screen Urine Negative (Negative); Barbiturates Screen Urine Negative (Negative); Benzodiazepines Screen Urine Negative (Negative); Cocaine Screen Urine Negative (Negative); Opiate Screen Urine Negative (Negative); PCP Screen Urine Negative (Negative); THC Screen Urine Negative (Negative)
[2022-11-15 22:36] LABS: Albumin Level 3.2 g/dL (3.5-5.2); Alkaline Phosphatase 79 U/L (40-130); Anion Gap 10.3 (5-19); Aspartate Amino Transferase 19 U/L (0-40); Blood Urea Nitrogen 28 mg/dL (8-23); Calcium 8.5 mg/dL (8.5-10.5); Carbon Dioxide 28 mmol/L (22-29); Chloride 108 mmol/L (98-107); Glucose 157 mg/dL (65-115); Osmolality Calculated 303 mOsm/kg (285-295); Potassium 4.3 mmol/L (3.5-5.1); Sodium 142 mmol/L (136-145); Thyroid Stimulating Hormone 5.31 uIU/mL (0.27-4.20); Total Bilirubin 0.2 mg/dL (0.15-1.2); Total Protein 6.2 g/dL (6.6-8.7)
[2022-11-15 22:46] LABS: Acetaminophen < 5.0 ug/mL (10-30); Alcohol Level < 10 mg/dL (0-10); Creatinine Clr Calc Pharmacy 46.5089; Salicylate < 0.3 mg/dL (3-10)
[2022-11-15 22:47] LABS: Alanine Aminotransferase 14 U/L (0-41)
[2022-11-16] VITALS (8 sets, daily range): BP systolic 123–176; BP diastolic 57–83; PULSE 62–92; RESP 17–20; O2SAT 93–100
--- NOTE | 2022-11-16 00:17 | PC.NURSE ---
PT PLACED ON 2L NC DUE TO SLEEP APNEA AND OXYGEN SATURATION DROPPING WHILE SLEEPING. PT RESTING IN BED, WITH AUDIBLE SNORING. LEVER MILLER AT BEDSIDE.
--- NOTE | 2022-11-16 07:05 | PC.NURSE ---
to room to assist pt using urinal. pt unsteady on his feet. appears sleepy. helped back into bed without incident.
--- NOTE | 2022-11-16 08:12 | PC.NURSE ---
to room. pt needing to urinate. pt up to use urinal. completed task with no incidents. pt back to bed and warm blanket provided.
--- NOTE | 2022-11-16 08:42 | PC.NURSE ---
pt found with IV out of hand. minimal bleeding noted. bandage applied to site.
[2022-11-16] MEDS: quetiapine 25 mg Tablet PO (09:37)
[2022-11-16] MEDS: quetiapine 25 mg Tablet 50 MG PO (09:37)
[2022-11-16] MEDS: meloxicam 7.5 mg tablet 15 MG PO (09:38)
[2022-11-16] MEDS: tamsulosin 0.4 mg Capsule PO (09:38)
[2022-11-16] MEDS: duloxetine 60 mg Capsule PO (09:38)
[2022-11-16] MEDS: amlodipine 10 mg Tablet PO (09:38)
[2022-11-16] MEDS: hydroCHLOROthiazide 25 mg Tablet 6.25 MG PO (09:39)
--- NOTE | 2022-11-16 10:50 | PC.NURSE ---
to room. pt agitated and getting out of bed. md notified and medication ordered. upon entering room to medicate, pt agitated, swinging and kicking at staff. pt limbs controlled and medicated without incident.
[2022-11-16] MEDS: LORazepam 2 mg/mL INJ 1 mL 1 MG IM (10:59)
[2022-11-16] MEDS: water for injection-sterile 10 ML 1.2 ML (10:59)
[2022-11-16] MEDS: ziprasidone 20 mg/mL SDV 10 MG IM (10:59)
--- NOTE | 2022-11-16 11:56 | PC.NURSE ---
pt resting comfortably with eyes closed. respirations even and non labored.
--- NOTE | 2022-11-16 19:05 | PC.NURSE ---
Update given to daughter/mother over phone; nurse informed family that arrangements were being made to find pt facility. Daughter/mother had no questions or concerns at time of update.
--- NOTE | 2022-11-16 22:04 | PC.NURSE ---
Pt was cleaned up by nursing staff and placed in fresh briefs.
[2022-11-17 00:34] VITALS: BP 105/59; PULSE 56; RESP 16; O2SAT 96
[2022-11-17 06:23] VITALS: BP 131/76; PULSE 60; RESP 60; O2SAT 98
[2022-11-17] MEDS: atorvastatin 40 mg Tablet 20 MG PO (09:23)
[2022-11-17] MEDS: amlodipine 10 mg Tablet PO (09:23)
[2022-11-17] MEDS: duloxetine 60 mg Capsule PO (09:24)
[2022-11-17] MEDS: meloxicam 7.5 mg tablet 15 MG PO (09:25)
[2022-11-17] MEDS: hydroCHLOROthiazide 25 mg Tablet 6.25 MG PO (09:25)
[2022-11-17] MEDS: quetiapine 25 mg Tablet 75 MG PO ×2 (09:26→17:58)
[2022-11-17] MEDS: tamsulosin 0.4 mg Capsule PO (09:27)
--- NOTE | 2022-11-17 10:47 | DCPLANNER ---
general manager was asked to look for placement for this patient. general manager called and faxed patients information to the following facilities: [facility] - 10:45 - can fax patients information [facility] - 10:45 left voicemail [facility] - 10:50 - on [facility] - 10:55 - spoke with Brenna - can fax patients information [facility] - 11:05 - [facility] no beds [facility] - 11:12 - left voicemail [facility] 11:14 - no beds can fax and be put on a waitlist [facility] - 11:15 - can fax patients information Resolutions - voluntary only
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
[2022-11-17 12:03] LABS: Free T4 Free Thyroxine 0.95 ng/dL (0.82-1.77)
--- NOTE | 2022-11-17 19:09 | PC.NURSE ---
ASSUMED CARE OF PATIENT AT 1900.
[2022-11-17] MEDS: mirtazapine 15 mg Tablet 7.5 MG PO (21:29)
[2022-11-17 22:33] VITALS: BP 122/61; PULSE 68; RESP 17; O2SAT 93
[2022-11-18 00:45] LABS: Basophils # 0.1 10^3/uL (0.0-0.1); Basophils % 0.6 %; Eosinophils # 0.2 10^3/uL (0.0-0.8); Eosinophils % 2.5 %; Hematocrit 40.6 % (37-53); Lymphocytes # 1.9 10^3/uL (0.8-4.8); Lymphocytes % 23.7 %; Mean Corpuscular HGB Conc 32.8 g/dL (30-55); Mean Corpuscular Hemoglobin 31.1 pg (27-33); Mean Corpuscular Volume 95.1 fl (82-101); Mean Platelet Volume 10.4 fL (7.4-10.4); Monocytes # 0.4 10^3/uL (0.2-0.9); Monocytes % 5.6 %; Neutrophils % 67.3 %; Nucleated Red Blood Cells % 0 %; Platelet Count 160 10^3/cmm (157-399); Red Blood Count 4.27 10^6/uL (3.85-5.65); Red Cell Distribution Width 13.1 % (12.1-15.1); White Blood Count 7.88 10^3/uL (3.29-11.43)
[2022-11-18 01:02] LABS: Alanine Aminotransferase 20 U/L (0-41); Albumin Level 3.4 g/dL (3.5-5.2); Alkaline Phosphatase 82 U/L (40-130); Anion Gap 12.3 (5-19); Aspartate Amino Transferase 24 U/L (0-40); Blood Urea Nitrogen 32 mg/dL (8-23); Calcium 8.8 mg/dL (8.5-10.5); Carbon Dioxide 25 mmol/L (22-29); Chloride 105 mmol/L (98-107); Globulin 2.9 g/dL (1.3-4.6); Glucose 87 mg/dL (65-115); Osmolality Calculated 292 mOsm/kg (285-295); Potassium 4.3 mmol/L (3.5-5.1); Sodium 138 mmol/L (136-145); Total Bilirubin 0.6 mg/dL (0.15-1.2); Total Protein 6.3 g/dL (6.6-8.7)
--- NOTE | 2022-11-18 07:13 | PC.NURSE ---
Report from LENCHO Cam. Pt resting quietly at this time.
[2022-11-18] MEDS: hydroCHLOROthiazide 25 mg Tablet 6.25 MG PO (08:16)
[2022-11-18] MEDS: tamsulosin 0.4 mg Capsule PO (08:17)
[2022-11-18] MEDS: meloxicam 7.5 mg tablet 15 MG PO (08:17)
[2022-11-18] MEDS: quetiapine 25 mg Tablet 75 MG PO (08:18)
[2022-11-18] MEDS: amlodipine 10 mg Tablet PO (08:19)
[2022-11-18] MEDS: atorvastatin 40 mg Tablet 20 MG PO (08:19)
[2022-11-18] MEDS: duloxetine 60 mg Capsule PO (08:20)
[2022-11-18 08:28] VITALS: BP 147/68; PULSE 67; RESP 18; TEMP 36.1; O2SAT 97
--- NOTE | 2022-11-18 08:33 | PC.NURSE ---
Pt awake at this time. States he needs to urinate. Pt was assisted to standing position, urinated approx 200ml clear yellow urine. Pt sat back in bed on his own. Pt appropriate at this time. Follows commands. No aggressive behavior noted. Pt took morning meds without complication.
[2022-11-18] MEDS: meloxicam 7.5 mg tablet PO (09:18)
--- NOTE | 2022-11-18 11:14 | PC.NURSE ---
Report called to [facility]. CHEMA Patel. No aggression or agitation has been reported or displayed for >48-72 hours. Patient is cooperative with nursing care. Patient is unable to state or place; due to underlying dementia. Kris Patterson called for tansport back to ID.
[2022-11-18 15:40] VITALS: RESP 14
== END 2022-11-18 15:42 | disposition home or self-care (01) ==
PROVIDERS: Emergency Medicine; Emergency Provider Family Medicine; PCP Family Medicine
DX: G31.09 Other frontotemporal neurocognitive disorder (principal); F02.818 Dementia in other diseases classified elsewhere, unspecified severity, with other behavioral disturbance; Z20.822 Contact with and (suspected) exposure to COVID-19; I11.0 Hypertensive heart disease with heart failure; I50.9 Heart failure, unspecified; E78.5 Hyperlipidemia, unspecified
CPT/HCPCS: 36415; 70450; 80053; 80306; 80307; 81003; 84439; 84443; 85025; 87426; 93005; 96372; 99285; J2060; J3486

== ENCOUNTER 2023-03-26 00:32 | Emergency (ER) | payer MEDICARE, BC, MEDICAID, SELFPAY ==
[2023-03-26 00:32] VITALS: BP 181/82; PULSE 76; RESP 18; TEMP 36.1; O2SAT 96
--- NOTE | 2023-03-26 00:43 | CTR_ITS ---
PROCEDURE INFORMATION: Exam: CT Cervical Spine Without Contrast Exam date and time: 03/26/2023 12:58 AM Age: 87 years old Clinical indication: Injury or trauma; Blunt trauma; Patient HX: EMS arrival from residential for unwitnessed fall. custodial states PT was endorsing back pain. History of hemorrhagic stroke. TECHNIQUE: Imaging protocol: Computed tomography of the cervical spine without contrast. Radiation optimization: All CT scans at this facility use at least one of these dose optimization techniques: automated exposure control; mA and/or kV adjustment per patient size (includes targeted exams where dose is matched to clinical indication); or iterative reconstruction. REPORTING DATA: Count of CT and Cardiac NM exams in prior 12 months: This patient has received [address] and 0 known cardiac nuclear medicine studies in the 12 months prior to the current study. COMPARISON: CT head wo con* [id number] 03/26/2023 12:55 AM RADIATION DOSE METRICS: Total DLP (mGy-cm): 459.87 FINDINGS: Bones/joints: Craniocervical and facet alignment is preserved. No acute appearing vertebral body compression deformity. Multilevel cervical spondylosis. Vasculature: Bilateral carotid bulb atherosclerosis. Soft tissues: Unremarkable. Other findings: Tiny bilateral laryngoceles incidentally noted. CT/CT cervical spin wo con* [id number] IMPRESSION: No acute fracture or traumatic malalignment in the cervical spine.
--- NOTE | 2023-03-26 00:43 | CTR_ITS ---
PROCEDURE INFORMATION: Exam: CT Head Without Contrast Exam date and time: 03/26/2023 12:55 AM Age: 87 years old Clinical indication: Injury or trauma; Blunt trauma (contusions or hematomas); Prior surgery; Surgery date: 6+ months; Surgery type: Resection of right eye. Patient HX: EMS arrival from senior care for unwitnessed fall. [facility] states PT was endorsing back pain. History of hemorrhagic stroke. TECHNIQUE: Imaging protocol: Computed tomography of the head without contrast. Radiation optimization: All CT scans at this facility use at least one of these dose optimization techniques: automated exposure control; mA and/or kV adjustment per patient size (includes targeted exams where dose is matched to clinical indication); or iterative reconstruction. REPORTING DATA: Count of CT and Cardiac NM exams in prior 12 months: This patient has received [address] and 0 known cardiac nuclear medicine studies in the 12 months prior to the current study. COMPARISON: CT head wo con* [id number] 11/15/2022 9:00 PM RADIATION DOSE METRICS: Total DLP (mGy-cm): 1132.18 FINDINGS: Brain: Left temporal encephalomalacia/gliosis, unchanged, consistent with sequela of remote infarct. No new/acute territorial region of rizzo-white dedifferentiation. Smooth small focus of hyperattenuation along the right anterior-inferior falx, series 4, image 19, series 8, image 16, new from prior. No mass effect or midline shift. Mild burden of nonspecific white matter hypoattenuation, most likely chronic microvascular ischemic change. Generalized parenchymal atrophy. Cerebral ventricles: No acute hyrocephalus. Paranasal sinuses: Visualized sinuses are well-aerated. No fluid levels. Mastoid air cells: Visualized mastoid air cells are well aerated. Orbital cavities: Surgical changes of the right orbit with globe prosthesis. No acute abnormality. Bones/joints: No acute calvarial fracture. Soft tissues: No acute abnormality. CT/CT head wo con* [id number] IMPRESSION: 1. Small focus of hyperattenuation along the right anterior inferior falx, new from prior, likely small subdural blood products given patient history. 2. No acute calvarial fracture.
--- NOTE | 2023-03-26 00:43 | XRR_ITS ---
PROCEDURE INFORMATION: Exam: XR Pelvis Exam date and time: 03/26/2023 12:48 AM Age: 87 years old Clinical indication: Injury or trauma; Blunt trauma (contusions or hematomas); Bilateral; Pelvic region; Prior surgery; Surgery date: 6+ months; Surgery type: Appy. Prostate; Patient HX: EMS arrival from [facility] for [facility]itnessed fall. [facility] states PT was endorsing back pain. History of hemorrhagic stroke. TECHNIQUE: Imaging protocol: Radiologic exam of the pelvis. Views: 1 or 2 view. COMPARISON: CT abdomen pelvis wo/w [id number] 12/18/2016 11:18 AM FINDINGS: Bones/joints: No evidence of acute fracture or dislocation. No erosive disease. Moderate lower lumbar degenerative change. Soft tissues: Unremarkable. Vasculature: Advanced arterial calcification. XR/XR pelvis 1-2V* [id number] IMPRESSION: No acute bony injury. Moderate lower lumbar degenerative change noted. Advanced arterial calcification.
--- NOTE | 2023-03-26 00:43 | CTR_ITS ---
PROCEDURE INFORMATION: Exam: CT Lumbar Spine Without Contrast Exam date and time: 03/26/2023 1:03 AM Age: 87 years old Clinical indication: Injury or trauma; Blunt trauma (contusions or hematomas); Prior surgery; Surgery date: 6+ months; Surgery type: Appy. Prostate; Patient HX: EMS arrival from [facility] for [facility]itnessed [facility]. [facility] states PT was endorsing back pain. History of hemorrhagic stroke. TECHNIQUE: Imaging protocol: Computed tomography of the lumbar spine without contrast. Radiation optimization: All CT scans at this facility use at least one of these dose optimization techniques: automated exposure control; mA and/or kV adjustment per patient size (includes targeted exams where dose is matched to clinical indication); or iterative reconstruction. REPORTING DATA: Count of CT and Cardiac NM exams in prior 12 months: This patient has received [address] and 0 known cardiac nuclear medicine studies in the 12 months prior to the current study. COMPARISON: CT thoracic spin wo con* [id number] 03/26/2023 1:00 AM RADIATION DOSE METRICS: Total DLP (mGy-cm): 1749.15 FINDINGS: Bones/joints: There are 5 lumbar type vertebrae with partial lumbarization of S1. No evidence of acute fracture. Mild degenerative disc and moderate to severe facet disease is noted. There is spinal canal stenosis at L2-L3, L3-L4, and L4-L5. Patent neural foramina. Mild bilateral sacroiliac osteoarthritis. Vasculature: Abdominal aorta is normal in caliber. Soft tissues: Unremarkable. CT/CT lumbar spine wo con* [id number] IMPRESSION: 1. No evidence of acute lumbar spine fracture or malalignment. 2. Multilevel spinal stenosis noted spanning from L2-L3 to L4-L5. Correlate with any symptoms of neurogenic claudication.
--- NOTE | 2023-03-26 00:43 | CTR_ITS ---
PROCEDURE INFORMATION: Exam: CT Thoracic Spine Without Contrast Exam date and time: 03/26/2023 1:00 AM Age: 87 years old Clinical indication: Injury or trauma; Blunt trauma (contusions or hematomas); Prior surgery; Surgery date: 6+ months; Surgery type: Gb; Patient HX: EMS arrival from [facility] for unwitnessed fall. intermediate states PT was endorsing back pain. History of hemorrhagic stroke. TECHNIQUE: Imaging protocol: Computed tomography of the thoracic spine without contrast. Radiation optimization: All CT scans at this facility use at least one of these dose optimization techniques: automated exposure control; mA and/or kV adjustment per patient size (includes targeted exams where dose is matched to clinical indication); or iterative reconstruction. REPORTING DATA: Count of CT and Cardiac NM exams in prior 12 months: This patient has received [address] and 0 known cardiac nuclear medicine studies in the 12 months prior to the current study. COMPARISON: CT cervical spin wo con* [id number] 03/26/2023 12:58 AM RADIATION DOSE METRICS: Total DLP (mGy-cm): 1856.99 FINDINGS: Bones/joints: No evidence of acute thoracic spine fracture. Mild diffuse degenerative changes noted with widely patent spinal canal. Visualized posterior ribs are intact. Soft tissues: Unremarkable. Lungs: Visualized lung parenchyma is notable for bibasilar bronchial wall thickening. There is a granuloma in the right lower lobe. No airspace disease. CT/CT thoracic spin wo con* [id number] IMPRESSION: No evidence of acute thoracic spine fracture. Widely patent spinal canal.
--- NOTE | 2023-03-26 00:44 | ED_ITS ---
HPI - Fall General: Chief Complaint: Fall Stated Complaint: Fall- Back Pain Time Seen by Provider: 03/26/23 00:34 Source: EMS Mode of arrival: EMS Limitations: altered mental status History of Present Illness: 87-year-old male from senior care is de mented he had a unwitnessed supposedly fall per nursing staff patient here is complaining of some neck and back pain but difficult to tell exactly where his pain is he does complain of a headache as well. He has no signs of injuries here. Associated symptoms-after fall: Reports headache(s) and neck pain; Denies abdominal pain or chest pain Review of Systems Const: Denies: fever(s), chills, body aches or change in appetite ENMT: Denies: throat pain or dental pain Card: Denies: chest pain Resp: Denies: dyspnea GI: Denies: abdominal pain, nausea, vomiting or diarrhea Musc: Reports: neck pain and back pain Skin/Breast: Denies: rash Neuro: Reports: headache(s) [facility] ED PFSH: Medical History (Updated 03/26/23 @ 02:47 by Marcos Willams MD) Anemia Dyslipidemia CHF (congestive heart failure) Essential hypertension Gastric ulcer multiple Lower esophageal ring (Schatzki) Hiatal hernia Chronic osteoarthritis DJD (degenerative joint disease) of knee Elevated PSA screening PSA 01/2018 was 4.7; 07/2018 5.74, repeat 5.1 Normal GREGORIA elected to forego any further prostate screening based on age personal preference and overall impression a very low risk. Benign prostatic hyperplasia Absent eyeball right Encounter for counseling for care management of patient with chronic conditions and complex health needs using nurse-based model Surgical History History of removal of eye (~1966) right Hx of appendectomy (~1967) Hx of transurethral resection of prostate History of arthroscopy of shoulder (~2005) Hx laparoscopic cholecystectomy (~05/2017) Hx of colonoscopy (~12/2015) no abnormalities, except internal hemorrhoids. No obvious source of bleeding. History of esophagogastroduodenoscopy (EGD) (~12/2015) Schatzki ring noted, bx taken with cold forceps. Small hiatal hernia, multiple 5mm gastric ulcers noted in the antrum of stomach. BX with cold forceps. No abnormalities in the duodenum. Family History Father Cancer hepatic Social History Smoking and tobacco/nicotine status: never used tobacco/nicotine Second hand smoke exposure: No Alcohol intake: never Substance/Drug Use: never Caregiver/support person: Yes Lives independently: Yes Household members: spouse Housing: House Marital status: Current occupational status: retired Current gender identity: Male Wandy/Holiness: [employer] [facility], [place] Physical Exam Const: COMMON NORMALS: no acute distress HENMT: COMMON NORMALS: normocephalic and atraumatic HEAD & SCALP: normocephalic and atraumatic Neck/C-Spine: COMMON NORMALS: supple OTHER: Paraspinal tenderness along neck Chest: COMMONS NORMALS: normal inspection of the chest and normal palpation of entire chest wall Resp: COMMON NORMALS: normal respiratory effort, No retractions, No use of accessory muscles and clear to auscultation bilaterally AUSCULTATION: clear to auscultation bilaterally Cardio: COMMON NORMALS: regular rate, regular rhythm and No murmurs present (Cardio) RATE: regular rate RHYTHM: regular rhythm GI: COMMON NORMALS: Normal to inspection, nondistended, normoactive bowel sounds present, Soft to palpation, non-tender and no masses PALPATION: Yes Soft to palpation Back/Pelvis: OTHER: Tenderness along the lumbar thoracic spine with no obvious deformity Extremity: COMMON NORMALS: normal to inspection and full ROM Neuro: COMMON NORMALS: moves all extremities and no focal motor deficits Psych: COMMON NORMALS: mental status grossly normal, Normal thought process present and cooperative THOUGHT PROCESS: Normal thought process present Skin: COMMON NORMALS: no rashes or lesions noted and no wounds GENERAL SKIN EXAM: no rashes or lesions noted Course Vital Signs: Vital signs: Vital Signs Temperature 97 F L 03/26/23 00:32 Pulse Rate 70 03/26/23 02:00 Respiratory Rate 18 03/26/23 00:32 Blood Pressure 168/78 03/26/23 02:00 Pulse Oximetry 100 03/26/23 02:00 Oxygen Delivery Me thod Room Air 03/26/23 01:13 MDM - Fall Medical Decision Making Patient presents after a fall CT showed a possible small subdural. I did speak to his daughter she states he had a subdural in the past and they were told that due to his age they would not do anything she does not want him transferred she like him to be discharged back to the senior care at this time we will discharge him to [facility]. Medical Records I reviewed the patient's medical records. Lab Data Radiology Impressions Cervical Spine CT 03/26/23 00:43 IMPRESSION: No acute fracture or traumatic malalignment in the cervical spine. Head CT 03/26/23 00:43 IMPRESSION: 1. Small focus of hyperattenuation along the right anterior inferior falx, new from prior, likely small subdural blood products given patient history. 2. No acute calvarial fracture. Lumbar Spine CT 03/26/23 00:43 IMPRESSION: 1. No evidence of acute lumbar spine fracture or malalignment. 2. Multilevel spinal stenosis noted spanning from L2-L3 to L4-L5. Correlate with any symptoms of neurogenic claudication. Pelvis X-Ray 03/26/23 00:43 IMPRESSION: No acute bony injury. Moderate lower lumbar degenerative change noted. Advanced arterial calcification. Thoracic Spine CT 03/26/23 00:43 IMPRESSION: No evidence of acute thoracic spine fracture. Widely patent spinal canal. All radiology interpretation(s) finalized by discharge Discharge Plan Discharge Patient Disposition: Home Clinical Impression: Fall, Subdural hematoma Condition: Stable Prescriptions: No Action bisoprolol-hydrochlorothiazide 10-6.25 mg tablet 1 tab PO DAILY simvastatin 10 mg tablet 10 mg PO DAILY tamsulosin 0.4 mg capsule 0.4 mg PO DAILY quetiapine 25 mg tablet 25 mg PO DAILY meloxicam 15 mg tablet 15 mg PO DAILY amlodipine 10 mg tablet 10 mg PO DAILY mirtazapine 7.5 mg tablet 15 mg PO QPM duloxetine 60 mg capsule,delayed release(DR/EC) 60 mg PO DAILY quetiapine 50 mg tablet 50 mg PO DAILY Discharge Orders: Discharge ED (Routine); Ordered 03/26/23 Ordered By: Marcos Willams Referrals: Sunshine Garcia MD [Primary Care Provider] - Discharge Diet: Advance as tolerated Discharge Activity: Resume usual activity Patient Instructions: Hematoma (ED) Coding Level of Care Code ED Club Waiter/Waitress for Abhinav Mary
[2023-03-26 01:13] VITALS: BP 175/98; O2SAT 95
[2023-03-26 02:00] VITALS: BP 168/78; PULSE 70; O2SAT 100
[2023-03-26 03:06] VITALS: BP 155/83; PULSE 72; RESP 18; O2SAT 97
== END 2023-03-26 04:27 | disposition home or self-care (01) ==
PROVIDERS: Emergency Provider Emergency Medicine; PCP Family Medicine
DX: S06.5XAA Traumatic subdural hemorrhage with loss of consciousness status unknown, initial encounter (principal); I11.0 Hypertensive heart disease with heart failure; I50.9 Heart failure, unspecified; E78.5 Hyperlipidemia, unspecified; F03.90 Unspecified dementia, unspecified severity, without behavioral disturbance, psychotic disturbance, mood disturbance, and anxiety; W19.XXXA Unspecified fall, initial encounter; Y92.129 Unspecified place in nursing home as the place of occurrence of the external cause
CPT/HCPCS: 70450; 72125; 72128; 72131; 72170; 99284

== ENCOUNTER 2023-04-19 08:16 | Emergency (ER) | payer MEDICARE, BC, MEDICAID, SELFPAY ==
[2023-04-19] VITALS (75 sets, daily range): BP systolic 82–117; BP diastolic 36–64; PULSE 44–69; RESP 5–25; TEMP 32.5–32.6; O2SAT 79–100
--- NOTE | 2023-04-19 08:21 | CT_ITS ---
WS: [id number] CT HEAD TECHNIQUE: Noncontrast CT of the head obtained from the skullbase to the vertex. CLINICAL INFORMATION: AMS COMPARISON: 03/26/2023 DLP: 1359.[address] scans at [facility] use at least one of these dose optimization techniques: automated e xposure control; mA and/or kV adjustment per patient size (includes targeted exams where dose is matc hed to clinical indication); or iterative reconstruction. FINDINGS: Low-attenuation change in the LEFT parasagittal posterior temporal lobe along the parahippocampal gyr us. Associated mild localized mass effect. This is new from 03/26/2023. Area of masslike edema measures 2.1 x 2.1 cm. Differential considerations include subacute ischemia versus metastatic disease. Recom mend further evaluation MRI without and with gadolinium enhancement. No hydrocephalus. No acute hemor rhage. Previously described focus of increased attenuation along the RIGHT inferior frontal lobe is not seen today. RIGHT globe prosthesis. Moderate small vessel changes. Moderate parenchymal volume loss. Norm al posterior fossa. Paranasal sinuses and mastoid air cells are well aerated. Normal posterior nasoph arynx. Intracranial vascular calcification. Chronic encephalomalacia in the LEFT temporal lobe latera lly is unchanged. IMPRESSION: 1. Area of masslike edema in the LEFT posterior temporal lobe along the LEFT posterior parahippocamp al gyrus with mild localized mass effect. No midline shift or hydrocephalus. 2. Differential considerations include subacute ischemia versus metastatic disease. Recommend furthe r evaluation with MRI without and with gadolinium enhancement for better anatomic detail. 3. Evidence of chronic infarct with encephalomalacia in the LEFT lateral temporal lobe is unchanged. 4. No hydrocephalus. 5. RIGHT globe prosthesis. Notified Christian Isabel DO at 04/19/2023 9:27 AM.
--- NOTE | 2023-04-19 08:21 | XR_ITS ---
WS: [id number] XR chest 1V portable [id number] REASON FOR EXAM: dyspnea/cough FINDINGS: Widening of the mediastinum to the right appears to be due to significant tortuosity and ectasia of t he ascending thoracic aorta and aortic arch. There is calcified granulomatous disease present in both hemithoraces. There are chronic reticular interstitial lung opacities in both lower lung bernabe. Chronic blunting o f the costophrenic angles. There was a linear area of opacity in the left lower lung field on examination of 11/12/2021 which has the appearance of atelectasis or fibrous scarring. Currently this abnormality shows a bulbous enlarg ement at the lateral most aspect of this linear opacity. No other interval change compared to the pre vious study. No definite findings for acute/subacute pulmonary parenchymal or pleural disease. IMPRESSION: No acute chest abnormality. Alteration of left lower lung field linear opacity in the interval since previous examination of 11/12. If this patient has a significant smoking history a CT scan of the chest is recommended to exclude in terval development of scar carcinoma.
--- NOTE | 2023-04-19 08:24 | ED_ITS ---
HPI - General Adult 2 General: Chief complaint: Altered Mental Status Stated complaint: ams Time Seen by Provider: 04/19/23 08:20 Source: patient Mode of arrival: EMS History of Present Illness: 87-year-old male presents to the emergen cy room via EMS. He is from the assisted he is a full code has been unresponsive. He is a full code. EMS gave him Narcan on the scene he had some slight improvement of mentation with that. They do report he had fallen at the assisted. Onset (ago): unknown Review of Systems 2 General: Reports: ROS unobtainable due to medical condition and ROS unobtainable due to mental status PFSH ED 2 PFS: Medical History (Updated 04/19/23 @ 14:01 by Christian Isabel DO) Anemia Dyslipidemia CHF (congestive heart failure) Essential hypertension Gastric ulcer multiple Lower esophageal ring (Schatzki) Hiatal hernia Chronic osteoarthritis DJD (degenerative joint disease) of knee Elevated PSA screening PSA 01/2018 was 4.7; 07/2018 5.74, repeat 5.1 Normal GREGORIA elected to forego any further prostate screening based on age personal preference and overall impression a very low risk. Benign prostatic hyperplasia Absent eyeball right Encounter for counseling for care management of patient with chronic conditions and complex health needs using nurse-based model Surgical History History of removal of eye (~1966) right Hx of appendectomy (~1967) Hx of transurethral resection of prostate History of arthroscopy of shoulder (~2005) Hx laparoscopic cholecystectomy (~05/2017) Hx of colonoscopy (~12/2015) no abnormalities, except internal hemorrhoids. No obvious source of bleeding. History of esophagogastroduodenoscopy (EGD) (~12/2015) Schatzki ring noted, bx taken with cold forceps. Small hiatal hernia, multiple 5mm gastric ulcers noted in the antrum of stomach. BX with cold forceps. No abnormalities in the duodenum. Family History Father Cancer hepatic Social History Smoking and tobacco/nicotine status: never used tobacco/nicotine Second hand smoke exposure: No Alcohol intake: never Substance/Drug Use: never Caregiver/support person: Yes Lives independently: Yes Household members: spouse Housing: House Marital status: Current occupational status: retired Current gender identity: Male Wandy/Mosque: [employer] Physical Exam 2 Const: GENERAL APPEARANCE: comfortable ORIENTATION/CONSCIOUSNESS: Yes patient obtunded HENMT: COMMON NORMALS: normocephalic, atraumatic and hearing grossly normal bilaterally HEAD & SCALP: normocephalic and atraumatic OTHER: Oral mucosa dry and crusted Resp: COMMON NORMALS: normal respiratory effort, No retractions, No use of accessory muscles and clear to auscultation bilaterally AUSCULTATION: clear to auscultation bilaterally Cardio: COMMON NORMALS: regular rhythm and No murmurs present (Cardio) R ATE: bradycardic RHYTHM: regular rhythm GI: COMMON NORMALS: Soft to palpation and No hepatosplenomegaly present A USCULTATION: Yes normoactive bowel sounds PALPATION: Yes Soft to palpation, No Tenderness to palpation present (GI), No Guarding due to palpation present (GI) and Yes No hepatosplenomegaly present Extremity: COMMON NORMALS: normal to inspection, capillary refill normal, no clubbing, cyanosis or edema, no calf tenderness and no pedal edema Skin: COMMON NORMALS: no rashes or lesions noted GENERAL SKIN EXAM: no rashes or lesions noted Course 2 Vital Signs: Vital signs: Vital Signs Temperature 90.6 F L 04/19/23 10:47 Pulse Rate 69 04/19/23 14:35 Respiratory Rate 19 H 04/19/23 14:35 Blood Pressure 117/55 04/19/23 14:35 Pulse Oximetry 93 04/19/23 14:35 Oxygen Delivery Me thod Nasal Cannula 04/19/23 12:55 Oxygen Flow Rate 2 04/19/23 12:55 MDM - General Adult Medical Decision Making Initially the plan was to admit the patient over the family had she made him from a full code to a Do Not Recussitate we have discussed possible comfort measures Dr. Roy discussed with him again ultimately decided to return to the assisted on hospice. Hospice comfort pack orders written discharge back by ambulance to the assisted Medical Records I reviewed the patient's medical records. Lab Data I reviewed the patient's lab results. 04/19/23 08:38 04/19/23 08:38 Laboratory Results WBC 4.40 10^3/uL (3.29-11.43) 04/19/23 08:38 RBC 3.83 10^6/uL (3.85-5.65) L 04/19/23 08:38 Hgb 11.80 g/dL (11.27-16.99) 04/19/23 08:38 Hct 36.0 % (37-53) L 04/19/23 08:38 MCV 94.0 fl (82-101) 04/19/23 08:38 MCH 30.8 pg (27-33) 04/19/23 08:38 MCHC 32.8 g/dL (30-55) 04/19/23 08:38 RDW 13.7 % (12.1-15.1) 04/19/23 08:38 Plt Count 79 10^3/cmm (157-399) L 04/19/23 08:38 MPV 11.9 fL (7.4-10.4) H 04/19/23 08:38 Neut % (Auto) 68.5 % 04/19/23 08:38 Lymph % (Auto) 22.7 % 04/19/23 08:38 [place] % (Auto) 6.1 % 04/19/23 08:38 Eos % (Auto) 2.3 % 04/19/23 08:38 Baso % (Auto) 0.2 % 04/19/23 08:38 Neut # (Auto) 3.01 10^3/uL (1.8-7.7) 04/19/23 08:38 Lymph # (Auto) 1.0 10^3/uL (0.8-4.8) 04/19/23 08:38 [place] # (Auto) 0.3 10^3/uL (0.2-0.9) 04/19/23 08:38 Eos # (Auto) 0.1 10^3/uL (0.0-0.8) 04/19/23 08:38 Baso # (Auto) 0.0 10^3/uL (0.0-0.1) 04/19/23 08:38 Nucleated RBC % (auto) 0 % 04/19/23 08:38 Nucleated RBCs # 0.0 /100WBC 04/19/23 08:38 Sodium 143 mmol/L (136-145) 04/19/23 08:38 Potassium 3.9 mmol/L (3.5-5.1) 04/19/23 08:38 Chloride 110 mmol/L (98-107) H 04/19/23 08:38 Carbon Dioxide 28 mmol/L (22-29) 04/19/23 08:38 Anion Gap 8.9 (5-19) 04/19/23 08:38 BUN 31 mg/dL (8-23) H 04/19/23 08:38 Creatinine 1.0 mg/dL (0.7-1.2) 04/19/23 08:38 GFR Calculation Not Reportable 04/19/23 08:38 Glucose 93 mg/dL (65-115) 04/19/23 08:38 POC Glucose 78 mg/dL (70-110) 04/19/23 09:05 Calculated Osmolality 302 mOsm/kg (285-295) H 04/19/23 08:38 Lactic Acid 0.5 mmol/L (0.5-2.2) 04/19/23 08:38 Calcium 8.4 mg/dL (8.5-10.5) L 04/19/23 08:38 Total Bilirubin 0.3 mg/dL (0.15-1.2) 04/19/23 08:38 AST 31 U/L (0-40) 04/19/23 08:38 ALT 40 U/L (0-41) 04/19/23 08:38 Alkaline Phosphatase 115 U/L (40-130) 04/19/23 08:38 Creatine Kinase 56 U/L (39-308) 04/19/23 08:38 Troponin T Baseline 32 ng/L (0-15) H 04/19/23 08:38 Troponin T 120 Minute 30.12 ng/L (0-15) H 04/19/23 11:00 Delta Troponin T -1.88 ABS# (0-10) L 04/19/23 11:00 NT-Pro-B Natriuret Pep 319 pg/mL (0-450) 04/19/23 08:38 Total Protein 5.6 g/dL (6.6-8.7) L 04/19/23 08:38 Albumin 3.0 g/dL (3.5-5.2) L 04/19/23 08:38 Globulin 2.6 g/dL (1.3-4.6) 04/19/23 08:38 Lipase 33 U/L (13-60) 04/19/23 08:38 Urine Color Yellow (Yellow) 04/19/23 10:12 Urine Appearance Clear (CLEAR) 04/19/23 10:12 Urine pH 5 (5-7) 04/19/23 10:12 Ur Specific [place] 1.025 (1.005-1.030) 04/19/23 10:12 Urine Protein Neg (Negative) 04/19/23 10:12 Urine Glucose (UA) Norm (Normal) 04/19/23 10:12 Urine Ketones Negative (Negative) 04/19/23 10:12 Urine Blood Neg (Negative) 04/19/23 10:12 Urine Nitrate Negative (Negative) 04/19/23 10:12 Urine Bilirubin Neg (Negative) 04/19/23 10:12 Urine Urobilinogen 1 mg/dL (Negative) H 04/19/23 10:12 Ur Leukocyte Esterase Negative (Negative) 04/19/23 10:12 Serum Ketones Negative (Negative) 04/19/23 08:38 Coronavirus 229E (PCR) Not detected (NOT DETECT) 04/19/23 09:05 Influenza Type A Ag negative (Negative) 04/19/23 09:05 Influenza Type B Ag negative (Negative) 04/19/23 09:05 SARS-CoV-2 (PCR) Not detected (NOT DETECT) 04/19/23 09:05 All radiology interpretation(s) finalized by discharge Discharge Plan Discharge Patient Disposition: Home Clinical Impression: Acute CVA (cerebrovascular accident) Condition: Stable Prescriptions: New morphine concentrate 100 mg/5 mL (20 mg/mL) Solution 20 mg sublingual DIRECTED MDD N/A PRN (Reason: Pain/SOB) 14 Days Qty: 30 0RF Rx Instructions: 0.25ml-1ml q1H PRN may increase to 0.5ml-1ml Q1H PRN Dulcolax (bisacodyl) 10 mg Suppository 10 mg MD DAILY PRN (Reason: Constipation) Qty: 5 0RF Rx Instructions: 1 suppository per rectum every day PRN for constipation. atropine 1 % Drops 4 drp sublingual Q4H PRN (Reason: Secretions) Qty: 5 0RF Rx Instructions: 4 drops SL q 4 hours PRN for terminal congestion/excessive secretions. ondansetron 4 mg Tablet,Disintegrating 4 mg translingual Q4H PRN (Reason: Nausea) Qty: 5 0RF Rx Instructions: Dissolve 1 tablet under tongue every 4 hours PRN for nausea lorazepam 2 mg/mL Concentrate 2 mg sublingual Q4H PRN (Reason: Anxiety/Seizure) Qty: 30 0RF Rx Instructions: 0.25ml-1ml q4H PRN Anxiety/Seizure Start 0.25ml may increase to 0.5ml-1ml q4H No Action bisoprolol-hydrochlorothiazide 10-6.25 mg tablet 1 tab PO DAILY simvastatin 10 mg tablet 10 mg PO DAILY tamsulosin 0.4 mg capsule 0.4 mg PO DAILY meloxicam 15 mg tablet 15 mg PO DAILY amlodipine 10 mg tablet 10 mg PO DAILY mirtazapine 7.5 mg tablet 15 mg PO QPM duloxetine 60 mg capsule,delayed release(DR/EC) 60 mg PO DAILY acetaminophen 325 mg Tablet 650 mg PO Q6H PRN (Reason: PAIN/ELEVATED TEMP) haloperidol lactate 5 mg/mL solution 5 mg IM Q8H PRN (Reason: AGGITATION) risperidone 1 mg tablet 1.5 mg PO BID Discharge Orders: Discharge ED (Routine); Ordered 04/19/23 Ordered By: Christian Isabel Referrals: Sunshine Garcia MD [Primary Care Provider] - Patient Instructions: Altered Mental Status (ED), Opioid Safety, Pain Management Activity Restrictions/Additional Instructions: You are seen today in the emergency room with an acute stroke. After discussion with hospitalist we recommend that the return to the assisted on hospice care. Coding Level of Care Code ED Tool Engine Lathe Set Up Operator for Abhinav Mary
--- NOTE | 2023-04-19 08:29 | ECG_ITS ---
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 Measurements Intervals [place] Rate: 47 P: 0 VA: 0 QRS: 55 QRSD: 118 T: 80 QT: 489 QTc: 434 Interpretive Statements SUPRAVENTRICULAR BRADYCARDIA ABNORMAL RHYTHM ECG Compared to ECG 11/15/2022 21:10:48 Sinus rhythm no longer present Electronically Signed On 04-19-2023 9:29:19 PROCESS LABORATORY SPECIALIST by Ahmet Hamilton M.D. [id number]
[2023-04-19] MEDS: sodium chloride 0.9% 1,000 ML 999 ML IV (08:40)
--- NOTE | 2023-04-19 08:47 | PC.PHAR ---
Addendum entered by Delores Back 04/19/23 09:28: MEDS RECONCILED VIA CURRENT MED LIST AT [facility]. 04/19/23. QUETIAPINE 25 MG AND 50 MG BOTH DC'D. HALDOL 5 MG IM ADDED. RISPERDAL ON MAY SHOWS 1.5MG TWICE DAILY. CURRENT TABLET STRENGTHS AVAILABLE ARE 0.25, 0.5, 1, 2, 3, AND 4 MG....... DOSAGE AMENDED TO 1 MG TAKE 1.5 MG TWICE DAILY. Original Note: [phone]. 04/19/23 REQUESTED MAR AND TAR 8:45AM
[2023-04-19 08:59] LABS: Basophils % 0.2 %; Eosinophils # 0.1 10^3/uL (0.0-0.8); Eosinophils % 2.3 %; Lymphocytes % 22.7 %; Mean Corpuscular HGB Conc 32.8 g/dL (30-55); Mean Corpuscular Hemoglobin 30.8 pg (27-33); Mean Platelet Volume 11.9 fL (7.4-10.4); Monocytes # 0.3 10^3/uL (0.2-0.9); Monocytes % 6.1 %; Neutrophils # 3.01 10^3/uL (1.8-7.7); Neutrophils % 68.5 %; Nucleated Red Blood Cells % 0 %; Platelet Count 79 10^3/cmm (157-399); Red Blood Count 3.83 10^6/uL (3.85-5.65); Red Cell Distribution Width 13.7 % (12.1-15.1)
[2023-04-19 09:09] LABS: Glucose Point of Care 78 mg/dL (70-110)
[2023-04-19 09:12] LABS: Ketone (Acetest) Serum Negative (Negative)
[2023-04-19 09:22] LABS: Lactic Sepsis W/Reflex 0.5 mmol/L (0.5-2.2); Troponin(5th) Baseline 32 ng/L (0-15)
[2023-04-19 09:27] LABS: Influenza A by IFA negative (Negative); Influenza B by IFA negative (Negative)
[2023-04-19 09:30] LABS: Alanine Aminotransferase 40 U/L (0-41); Alkaline Phosphatase 115 U/L (40-130); Anion Gap 8.9 (5-19); Aspartate Amino Transferase 31 U/L (0-40); Blood Urea Nitrogen 31 mg/dL (8-23); Calcium 8.4 mg/dL (8.5-10.5); Carbon Dioxide 28 mmol/L (22-29); Chloride 110 mmol/L (98-107); Creatine Phosphokinase 56 U/L (39-308); Globulin 2.6 g/dL (1.3-4.6); Glucose 93 mg/dL (65-115); Lipase 33 U/L (13-60); NT Pro B Type Natriuretic Pept 319 pg/mL (0-450); Osmolality Calculated 302 mOsm/kg (285-295); Potassium 3.9 mmol/L (3.5-5.1); Sodium 143 mmol/L (136-145); Total Bilirubin 0.3 mg/dL (0.15-1.2); Total Protein 5.6 g/dL (6.6-8.7)
--- NOTE | 2023-04-19 09:56 | CT_ITS ---
WS: [id number] CTA HEAD AND NECK TECHNIQUE: Contrast enhanced CTA of the head and neck with coronal and sagittal reformatted images an d maximum intensity projection (MIP) images. NASCET criteria utilized. CLINICAL INFORMATION: acute CVA COMPARISON: CT earlier today DLP: 492.[address] scans at [facility] use at least one of these dose optimization techniques: automated e xposure control; mA and/or kV adjustment per patient size (includes targeted exams where dose is matc hed to clinical indication); or iterative reconstruction. FINDINGS: RIGHT: RIGHT common carotid artery is patent. Mild calcified atheromatous plaque RIGHT carotid bulb e xtending into the ICA. RIGHT ICA is patent to the skull base. Cavernous carotid calcification. LEFT: LEFT common carotid artery is patent. Mild calcified atheromatous plaque LEFT carotid bulb exte nding into the ICA. Less than 50% LEFT ICA stenosis. LEFT ICA is patent to the skull base. Cavernous carotid calcification. INTRACRANIAL CTA: Both vertebrals are patent. Vertebral arteries are patent to the basilar junction. Normal vascularity to the SHOT HOLE SHOOTER territory bilaterally. Both ICAs are patent to the skull base. Cavernous carotid calcification. Patent anterior communicatin g artery. Small LEFT A1 segment. Normal vascularity to the MARY GRACE and MCA territories bilaterally. No ev idence of proximal flow-limiting stenosis. Persistent low-attenuation in the LEFT SHOT HOLE SHOOTER territory suspicious for subacute ischemia. Decreased vasc ularity to the suspected area of ischemia. Chronic encephalomalacia LEFT temporal lobe. RIGHT globe p rosthesis. Moderate spondylitic changes cervical spine. IMPRESSION: 1. Less than 50% ICA stenosis bilaterally. Mild calcified atheromatous plaque both carotid bulbs ext ending into the ICAs. 2. Both vertebral arteries are patent. 3. Basilar artery is patent. Normal vascularity to the SHOT HOLE SHOOTER territory bilaterally. 4. No evidence of proximal intracranial flow-limiting stenosis. 5. Decreased vascularity to the area of edema in the LEFT posterior temporal lobe suspicious for sub acute ischemia. No definite mass in this area. Recommend follow-up to resolution or further evaluatio n with MRI.
--- NOTE | 2023-04-19 09:57 | PC.NURSE ---
PATIENT RECTAL TEMP 90.3, RECHECK 90.5. PROVIDER NOTIFIED. CORINNA PLASCENCIA APPLIED.
[2023-04-19] MEDS: dextrose 50% syringe 50 mL 25 ML IVP (10:05)
--- NOTE | 2023-04-19 10:23 | ECG_ITS ---
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 Measurements Intervals [place] Rate: 51 P: 68 ME: 255 QRS: 51 QRSD: 126 T: 103 QT: 466 QTc: 432 Interpretive Statements SINUS BRADYCARDIA WITH FIRST DEGREE AV BLOCK Compared to ECG 04/19/2023 08:29:55 First degree AV block now present Electronically Signed On 04-20-2023 6:53:24 PERFECT BINDER FEEDER OFFBEARER by Ahmet Hamilton M.D. [id number]
--- NOTE | 2023-04-19 10:28 | PC.NURSE ---
NURSE ATTEMPTED BLACKWOOD INSERTION X 2 WITH SMALLER CATHETER WITHOUT SUCCESS. NURSE SUCCESSFULLY INSERTED 8 FR RED RUBBER CATHETER, URINE RETURN. PATIENT RECTAL TEMP 90.6. PATIENT MADE COMFORTABLE IN BED.
[2023-04-19 10:30] LABS: Add Urine Microscopic? NO; Charge for UA Resulting for Rev
[2023-04-19 10:32] LABS: Bilirubin Urine Neg (Negative); Blood Urine Neg (Negative); Glucose Urine UA Norm (Normal); Ketones Urine Negative (Negative); Leukocyte Esterase Urine Negative (Negative); Nitrate Urine Negative (Negative); Protein Urine Neg (Negative); Specific Gravity, Urine 1.025 (1.005-1.030); Urine Appearance Clear (CLEAR); Urine Color Yellow (Yellow); Urobilinogen Urine 1 mg/dL (Negative); pH Urine 5 (5-7)
[2023-04-19 10:52] LABS: Adenovirus Not Detected (NOT DETECT); Chlamydia Pneumoniae Not Detected (NOT DETECT); Coronavirus 229E,HKU1,NL63,OC4 Not Detected (NOT DETECT); Human Metapneumovirus Not Detected (NOT DETECT); Human Rhinovirus/Enterovirus Not Detected (NOT DETECT); Influenza A Not Detected (NOT DETECT); Influenza A H1 Not Detected (NOT DETECT); Influenza A H1-2009 Not Detected (NOT DETECT); Influenza A H3 Not Detected (NOT DETECT); Influenza B Not Detected (NOT DETECT); Mycoplasma Pneumoniae Not Detected (NOT DETECT); Parainfluenza Virus Type 1 Not Detected (NOT DETECT); Parainfluenza Virus Type 2 Not Detected (NOT DETECT); Parainfluenza Virus Type 3 Not Detected (NOT DETECT); Parainfluenza Virus Type 4 Not Detected (NOT DETECT); Respiratory Syncytial Virus A Not Detected (NOT DETECT); Respiratory Syncytial Virus B Not Detected (NOT DETECT); SARS-COV-2 Not Detected (NOT DETECT)
[2023-04-19] MEDS: iohexol 350 mg/mL 500 mL Btl (per mL) IV (10:59)
[2023-04-19 11:30] LABS: Troponin 5 2HR 30.12 ng/L (0-15)
[2023-04-19 11:40] LABS: Troponin 5 2HR Delta -1.88 ABS# (0-10)
[2023-04-19] MEDS: norepinephrine 4 MG/250 ML BAG 7.5 MG IV (11:52)
--- NOTE | 2023-04-19 12:21 | PC.NURSE ---
ORAL CARE PROVIDED.
--- NOTE | 2023-04-19 13:39 | P.CONIM_ITS ---
Providers/Reason For Consult 2 Consulting Physician/Specialty*: Javi Capone MD, hospitalist Reason for Consult*: CVA Primary Care Provider: Sunshine Gacria MD History of Present Illness History of Present Illness Juan Akins Case is a 87 year old male resides at a skilled nursing who presents today with decreased responsiveness, noted at 6:30 in the morning. After being brought into the emergency department, the emergency department physician has diagnosed stroke. In talking with the family, the patient has had significant decline at the skilled nursing, with the most decline in the last 2 weeks. He now has to be fed, has significant issues with dementia, has had previous issues with behavior, is currently a two-person transfer, and has had multiple falls. He has a past history of a subdural, and recent ER visit for possible subdural on March 26. He is now eating a special modified diet, pur?ed. He has not recently had any abdominal pain, fever. Family acknowledges his quality of life has significantly deteriorated in the last several months, culminating with more deterioration in the last several weeks. Review of Systems 2 General: Reports: ROS unobtainable due to medical condition Medications/Allergies Home Medications Medication Instructions Recorded Confirmed Last Taken Type bisoprolol 10 1 tab PO DAILY 06/26/21 04/19/23 06/26/21 History mg-hydrochlorothiazide 6.25 mg tablet simvastatin 10 mg tablet 10 mg PO DAILY 06/26/21 04/19/23 06/25/21 History tamsulosin 0.4 mg capsule 0.4 mg PO DAILY 06/26/21 04/19/23 06/26/21 History amlodipine 10 mg tablet 10 mg PO DAILY 11/16/22 04/19/23 Unknown History duloxetine 60 mg capsule,delayed 60 mg PO DAILY 11/16/22 04/19/23 Unknown History release meloxicam 15 mg tablet 15 mg PO DAILY 11/16/22 04/19/23 Unknown History mirtazapine 7.5 mg tablet 15 mg PO QPM 11/16/22 04/19/23 Unknown History acetaminophen 325 mg tablet 650 mg PO Q6H PRN PAIN/ELEVATED 04/19/23 04/19/23 Unknown History TEMP haloperidol lactate 5 mg/mL 5 mg IM Q8H PRN AGGITATION 04/19/23 04/19/23 Unknown History injection solution risperidone 1 mg tablet 1.5 mg PO BID 04/19/23 04/19/23 Unknown History Allergies Allergy/AdvReac Type Severity Reaction Status Date / Time ciprofloxacin [From Cipro] Allergy Unknown Unknown Verified 04/19/23 08:35 sulfamethoxazole Allergy Unknown Unknown Verified 04/19/23 08:35 [From Bactrim] trimethoprim [From Bactrim] Allergy Unknown Unknown Verified 04/19/23 08:35 Current Medications Generic Name Dose Route Start Last Admin Trade Name Freq PRN Reason Stop Dose Admin norepinephrine 4 mg in 250 mls @ 0 mls/hr 04/19/23 10:15 04/19/23 11:52 Levophed IV 2 mcg/min .Q0M KAREN 7.5 mls/hr Administration Protocol Per Protocol PFSH Acute 2 PFSH: Medical History (Updated 04/19/23 @ 13:45 by Javi Capone MD) Anemia Dyslipidemia CHF (congestive heart failure) Essential hypertension Gastric ulcer multiple Lower esophageal ring (Schatzki) Hiatal hernia Chronic osteoarthritis DJD (degenerative joint disease) of knee Elevated PSA screening PSA 01/2018 was 4.7; 07/2018 5.74, repeat 5.1 Normal GREGORIA elected to forego any further prostate screening based on age personal preference and overall impression a very low risk. Benign prostatic hyperplasia Absent eyeball right Encounter for counseling for care management of patient with chronic conditions and complex health needs using nurse-based model Surgical History History of removal of eye (~1966) right Hx of appendectomy (~1967) Hx of transurethral resection of prostate History of arthroscopy of shoulder (~2005) Hx laparoscopic cholecystectomy (~05/2017) Hx of colonoscopy (~12/2015) no abnormalities, except internal hemorrhoids. No obvious source of bleeding. History of esophagogastroduodenoscopy (EGD) (~12/2015) Schatzki ring noted, bx taken with cold forceps. Small hiatal hernia, multiple 5mm gastric ulcers noted in the antrum of stomach. BX with cold forceps. No abnormalities in the duodenum. Family History Father Cancer hepatic Social History Smoking and tobacco/nicotine status: never used tobacco/nicotine Second hand smoke exposure: No Alcohol intake: never Substance/Drug Use: never Caregiver/support person: Yes Lives independently: Yes Household members: spouse Housing: House Marital status: Current occupational status: retired Current gender identity: Male [employer] Witness: [employer] [facility] Vitals/I&O/Wt Last Vital Signs Temp 90.6 F L 04/19/23 10:47 Pulse 55 L 04/19/23 12:55 Resp 10 L 04/19/23 12:55 BP 106/55 04/19/23 12:55 Pulse Ox 98 04/19/23 12:55 O2 Del Method Nasal Cannula 04/19/23 12:55 O2 Flow Rate 2 04/19/23 12:55 Weight last 48 hrs Weight 83.007 kg Physical Exam 2 Narrative: Patient grimaces to touch, and moves spontaneously. I cannot get him to open his eyes, or give me any verbal response. His temperature was low. Initial blood pressures demonstrated hypotension. He has no history of any exposure to lower temperatures. HEENT: Glass eye noted. Oropharynx dry. Neck is supple Cardiovascular bradycardic, 2/6 systolic murmur Lungs clear Abdomen soft. Few bowel sounds are noted. No obvious organomegaly exam deferred Extremities 1+ edema bilaterally Neurologic: Spontaneous movement but I could not get him to particularly withdrawal from pain. I did not get any purposeful movement from him. I did not get any verbal response. He was able to move all 4 extremities, but appeared significantly weak in all 4. I was unable to assess whether 1 side is more weak than the other. Data 04/19/23 08:38 04/19/23 08:38 Other Labs: Troponin 32 with repeat of 30. Albumin 3.0, calcium normal. LFTs normal. Sugar 93 Urinalysis no evidence of infection Serum ketones, coronavirus, flu all negative Chest x-ray which I reviewed demonstrated some blunting of the left costophrenic angle, otherwise no significant findings CT head with concern of masslike edema left posterior temporal lobe. Head and neck CTA demonstrated patent ICAs, decreased vascular area to the left posterior temporal lobe consistent with subacute ischemia. EKG per my read demonstrates sinus bradycardia, normal axis, first-degree AV block A&P Assessment and plan (1) Decreased responsiveness: Patient presents with decreased responsiveness, relatively acute, after a significant decline in his general health over the last several months, worse in the last weeks. His unresponsiveness today appears to be secondary to his CVA, with ischemia left temporal area In speaking with his family extensively, it is apparent that they believe and he would have believed his quality of life was significantly poor at the skilled nursing and was worsening over the last several months. After consideration of this, they have elected not to aggressively treat his current decreased responsiveness and evidence of CVA. They report he would not have wanted any further aggressive care. Family is amenable to comfort care, at the nursing facility, with hospice. I believe this is reasonable considering his situation, and comorbidities prior to his event of unresponsiveness this morning. (2) Acute encephalopathy: See above (3) CVA (cerebral vascular accident): See above Plan Discharging to nursing facility with comfort Long decision making process with family regarding direction of care, confirmation of DNR, transition to comfort. Diagnoses Decreased responsiveness R41.89 Acute encephalopathy G93.40 CVA (cerebral vascular accident) I63.9 Time Spent (min) 77
--- NOTE | 2023-04-19 14:41 | PC.NURSE ---
PATIENT MOVED TO COMFORT CARE PER DAVID. LEVO DRIP STOPPED. PATIENT MADE COMFORTABLE IN BED, FAMILY INFORMED.
== END 2023-04-19 17:21 | disposition home or self-care (01) ==
PROVIDERS: Emergency Provider Family Medicine; PCP Family Medicine
DX: I63.9 Cerebral infarction, unspecified (principal); Z11.52 Encounter for screening for COVID-19; I11.0 Hypertensive heart disease with heart failure; I50.9 Heart failure, unspecified; E78.5 Hyperlipidemia, unspecified
CPT/HCPCS: 36415; 36416; 70450; 70496; 70498; 71045; 80053; 81003; 82009; 82550; 82962; 83605; 83690; 83880; 84484; 85025; 87040; 87635; 87804; 93005; 96361; 96365; 96366; 96375; 99291; J7030; Q9967